=== PATIENT | male | born 1970 | race Caucasian/White ===

== ENCOUNTER → 2020-10-28 03:41 | Outpatient (CLI) | payer BC, SELFPAY ==
[2020-10-28 20:31] LABS: SARS-CoV-2 RNA PCR Negative
== END ==
PROVIDERS: PCP Internal Medicine; Visit Provider Internal Medicine Gastroenterology
DX: Z01.812 Encounter for preprocedural laboratory examination (principal); Z20.822 Contact with and (suspected) exposure to COVID-19
CPT/HCPCS: C9803; U0003; U0005

== ENCOUNTER 2020-10-31 01:59 | Day surgery (SDC) | payer BC, SELFPAY ==
[2020-10-24 13:49] VITALS: BMI 37.0
--- NOTE | 2020-10-24 14:12 | PC.NURSE ---
Pt. was COVID + 04/2020. Symptoms included sinus congestion and loss of taste and smell. Pt. did not require hospitalization. Pavel Lynn RN 10/24/20 [id number].
[2020-10-31 08:03] VITALS: BP 157/98; PULSE 80; RESP 16; TEMP 36.1; O2SAT 100; BMI 35.9
[2020-10-31] MEDS: LACTATED RINGERS 1,000 ML 150 ML IV CONT (08:23)
[2020-10-31] MEDS: GENTAMICIN 80MG/SOD CHL 50 ML 80 MG/50 ML BAG 100 MG IVPB (08:25)
[2020-10-31 08:31] LABS: Glucose Point of Care 259 (65-105)
[2020-10-31] MEDS: AMPICILLIN 2 GM/NS 100 ML 2 GM/100 ML BAG IVPB (08:53)
--- NOTE | 2020-10-31 08:53 | WPDANESEPPF ---
Anes - Initial Pre Proc Eval Procedure: Operation Date: 10/31/20 09:30 Proposed Procedures p screening colonoscopy - Tahir Segal MD Date/Time: 10/31/20 08:53 Surgeon: Tahir Segal MD Pre Op Diagnosis: neoplasm screening Patient Data Age: 49 Gender: M Height: 5 ft 10 in Weight: 113.4 kg Last Vital Signs Temp 97 F L 10/31/20 08:03 Pulse 80 10/31/20 08:03 Resp 16 10/31/20 08:03 BP 157/98 H 10/31/20 08:03 Pulse Ox 100 10/31/20 08:03 Allergies Allergy/AdvReac Type Severity Reaction Status Date / Time No Known Drug Allergies Allergy Verified 10/30/20 13:10 Home Medications Medication Instructions Recorded Confirmed Type aspirin 325 mg tablet 325 mg PO DAILY 08/06/19 10/31/20 History nitroglycerin 0.4 mg sublingual 0.4 mg SUBLINGUAL Q5M PRN 08/06/19 10/31/20 History tablet simvastatin 80 mg tablet 80 mg PO DAILY 08/06/19 10/31/20 History valsartan 320 mg tablet 320 mg PO DAILY #90 tablet 04/23/20 10/31/20 Rx pantoprazole 40 mg tablet,delayed 40 mg PO QAM #90 tablet 05/07/20 10/31/20 Rx release sod picosulf 10 mg-magnes 3.5 160 ml PO BID #160 ml 10/01/20 10/31/20 Rx gram-citric 12 gram/160 mL oral solution fluticasone propionate 50 2 spray INTRANASAL BID #16 ml 10/21/20 10/31/20 Rx mcg/actuation nasal spray,suspension hydrochlorothiazide 25 mg tablet 25 mg PO DAILY #90 tablet 10/29/20 10/31/20 Rx metformin 500 mg tablet 500 mg PO BID #60 tablet 10/29/20 10/31/20 Rx metoprolol succinate 50 mg 100 mg PO DAILY tablet 10/29/20 10/31/20 History tablet,extended release 24 hr Laboratory Tests 10/31/20 08:29 POC Capillary Glucose 259 mg/dl H mg/dl (65-105) Patient hx anesthesia problems: none Family hx anesthesia problems: none PMFSH Past Medical History Medical History (Updated 10/31/20 @ 08:51 by Erick Lugo MD) Atherosclerotic heart disease of [place] coronary artery without angina pectoris Essential (primary) hypertension Hyperlipidemia Obesity (BMI 30-39.9) Pure hypercholesterolemia Family History Family History Sibling Patient's sister is in good health Mother Cerebrovascular accident Skin cancer Father Skin cancer Diabetes mellitus Social History Social History Smoking status: Never smoker Second hand tobacco smoke exposure: No Alcohol intake: current Drinks per week: 2 Alcohol use details: rarely Living arrangements: alone Gender identity (if verbalized by the patient): Male Spiritual care concerns: No Anes - Eval Final PreProcedure Day of Procedure 10/31/20 08:53 Patient weight: obese Heart: regular rate and rhythm Lungs: clear to auscultation Airway: Mallampati scale class III Neurological: alert and oriented Last oral intake: >/= 8 hours ASA classification: III Emergent: no Anesthetic plan: proceed Anesthesia type and monitoring: general GIVS and standard monitoring Informed Consent: The patient's anesthetic plan and its attendant risks and benefits were discussed with the patient/family/POA. Questions were solicited and answers provided to the satisfaction of the patient/family/POA.
--- NOTE | 2020-10-31 09:10 | PM.HPGS ---
History of Present Illness History of Present Illness Consent: Risks, benefits, and alternatives have been discussed and questions answered. Patient agrees to proceed with procedure. Chief complaint: neoplasm screening Narrative: Delvin Leo is a 49 year old male referred for colon cancer screening Review of Systems Review of Systems: All systems reviewed & are unremarkable except as noted in HPI and below PMFSH Past Medical History Medical History Atherosclerotic heart disease of [place] coronary artery without angina pectoris Essential (primary) hypertension Hyperlipidemia Obesity (BMI 30-39.9) Pure hypercholesterolemia Family History Family History Sibling Patient's sister is in good health Mother Cerebrovascular accident Skin cancer Father Skin cancer Diabetes mellitus Social History Social History Smoking status: Never smoker Second hand tobacco smoke exposure: No Alcohol intake: current Drinks per week: 2 Alcohol use details: rarely Living arrangements: alone Gender identity (if verbalized by the patient): Male Spiritual care concerns: No Meds Home Medications and Allergies Home Medications Medication Instructions Recorded Confirmed Type aspirin 325 mg tablet 325 mg PO DAILY 08/06/19 10/31/20 History nitroglycerin 0.4 mg sublingual 0.4 mg SUBLINGUAL Q5M PRN 08/06/19 10/31/20 History tablet simvastatin 80 mg tablet 80 mg PO DAILY 08/06/19 10/31/20 History valsartan 320 mg tablet 320 mg PO DAILY #90 tablet 04/23/20 10/31/20 Rx pantoprazole 40 mg tablet,delayed 40 mg PO QAM #90 tablet 05/07/20 10/31/20 Rx release sod picosulf 10 mg-magnes 3.5 160 ml PO BID #160 ml 10/01/20 10/31/20 Rx gram-citric 12 gram/160 mL oral solution fluticasone propionate 50 2 spray INTRANASAL BID #16 ml 10/21/20 10/31/20 Rx mcg/actuation nasal spray,suspension hydrochlorothiazide 25 mg tablet 25 mg PO DAILY #90 tablet 10/29/20 10/31/20 Rx metformin 500 mg tablet 500 mg PO BID #60 tablet 10/29/20 10/31/20 Rx metoprolol succinate 50 mg 100 mg PO DAILY tablet 10/29/20 10/31/20 History tablet,extended release 24 hr Allergies Allergy/AdvReac Type Severity Reaction Status Date / Time No Known Drug Allergies Allergy Verified 10/30/20 13:10 Vital Signs Vital Signs - 24 hr 10/31/20 08:03 Temperature 36.1 C L Pulse Rate 80 Respiratory Rate 16 Blood Pressure 157/98 H Pulse Oximetry 100 Exam Resp: Auscultation: clear to auscultation bilaterally Cardio: Rate: regular rate Rhythm: regular rhythm GI: GI Palp: Yes Soft to palpation and No Tenderness to palpation present (GI) Assessment and Plan Assessment and plan (1) Colon cancer screening: Code(s): Z12.11 - Encounter for screening for malignant neoplasm of colon Status: Acute Assessment and Plan: Colonoscopy with possible biopsy or polypectomy or cautery or injection of substances.
[2020-10-31] MEDS: SIMETHICONE ORAL SUSPENSION 20 MG/0.3 ML 30 ML BOTTLE 0.6 ML IRRIGATION (09:32)
[2020-10-31 09:39] VITALS: BP 98/62; PULSE 62; RESP 16; O2SAT 98
[2020-10-31 09:49] VITALS: BP 128/73; PULSE 57; RESP 16; O2SAT 97
[2020-10-31 09:59] VITALS: BP 124/75; PULSE 56; RESP 16; O2SAT 96
== END 2020-10-31 10:09 | disposition home or self-care (01) ==
PROVIDERS: PCP Internal Medicine; Visit Provider Internal Medicine Gastroenterology
PROC: 0DJD8ZZ Inspection of Lower Intestinal Tract, Via Natural or Artificial Opening Endoscopic (ICD-10-PCS; CPT 45378; principal; 2020-10-31 09:30)
DX: Z12.11 Encounter for screening for malignant neoplasm of colon (principal); I25.10 Atherosclerotic heart disease of native coronary artery without angina pectoris; I10 Essential (primary) hypertension; E78.5 Hyperlipidemia, unspecified; E78.00 Pure hypercholesterolemia, unspecified; E66.9 Obesity, unspecified
CPT/HCPCS: 45378; 82948; C9803; J0290; J1580; J2704; J7120; U0003; U0005

== ENCOUNTER 2023-11-28 00:21 | Day surgery (SDC) | payer BC, SELFPAY ==
[2023-11-21 14:15] VITALS: BMI 30.9
[2023-11-28 12:43] VITALS: BP 162/92; PULSE 66; RESP 18; TEMP 36.4; O2SAT 100
[2023-11-28 13:08] LABS: Glucose Point of Care 152 mg/dl (65-105)
[2023-11-28] MEDS: LACTATED RINGERS 1,000 ML 150 ML IV CONT (13:08)
[2023-11-28] MEDS: GENTAMICIN 80MG/SOD CHL 50 ML 80 MG/50 ML BAG 100 MG IVPB (13:10)
[2023-11-28] MEDS: AMPICILLIN 2 GM/NS 100 ML 2 GM/100 ML BAG IVPB (13:33)
--- NOTE | 2023-11-28 13:49 | WPDANESEPPF ---
Anes - Initial Pre Proc Eval Procedure: Operation Date: 11/28/23 14:00 Proposed Procedures p Esophagogastroduodenoscopy - Rodney Nguyen MD Date/Time: 11/28/23 13:49 Surgeon: Rodney Nguyen MD Pre Op Diagnosis: Melena, Heartburn Patient Data Age: 53 Gender: M Height: 1.78 m Weight: 97.7 kg Last Vital Signs Temp 97.6 F 11/28/23 12:43 Pulse 66 11/28/23 12:43 Resp 18 11/28/23 12:43 BP 162/92 H 11/28/23 12:43 Pulse Ox 100 11/28/23 12:43 O2 Del Method Room Air 11/28/23 12:43 Allergies Allergy/AdvReac Type Severity Reaction Status Date / Time No Known Drug Allergies Allergy Mild Other Verified 11/28/23 12:42 Home Medications Medication Instructions Recorded Confirmed Type tirzepatide 2.5 mg/0.5 mL 2.5 mg subcut WEEKLY 03/11/23 11/21/23 History subcutaneous pen injector (Rayounlinda) metoprolol succinate 100 mg 100 mg PO DAILY #90 tabs 08/03/23 11/21/23 Rx tablet,extended release 24 hr valsartan 320 mg tablet 320 mg PO DAILY #90 tabs 08/03/23 11/21/23 Rx rosuvastatin 20 mg tablet 20 mg PO DAILY #30 tabs 09/12/23 11/21/23 Rx pantoprazole 40 mg tablet,delayed 40 mg PO QAM #90 tabs 09/30/23 11/21/23 Rx release (Protonix) hydrochlorothiazide 25 mg tablet 25 mg PO DAILY #90 tabs 11/13/23 11/21/23 Rx famotidine 20 mg tablet 20 mg PO DAILY #90 tabs 11/14/23 11/21/23 Rx metformin 1,000 mg tablet,extended 1,000 mg PO BID #180 tabs 11/28/23 Rx release 24hr (osmotic) Laboratory Tests 11/28/23 12:58 POC Capillary Glucose 152 H mg/dl (65-105) Patient hx anesthesia problems: none Family hx anesthesia problems: none Results Review: All pre-operative results and documents have been reviewed as part of the pre-operative evaluation. [facility] Past Medical History Medical History Atherosclerotic heart disease of [place] coronary artery without angina pectoris Essential (primary) hypertension Hyperlipidemia Obesity (BMI 30-39.9) Pure hypercholesterolemia Family History Family History Sibling Patient's sister is in good health Mother Cerebrovascular accident Skin cancer Father Skin cancer Diabetes mellitus Social History Social History Smoking status: Never smoker Second hand tobacco smoke exposure: No Alcohol intake: current Drinks per week: 12 Alcohol use details: rarely Substance use type: does not use Lack of Transportation: No Lack of Food: Never True Current Housing: I Have Housing Concerned About Future Housing: No Difficulty Paying Gas/Electric Bills: No Difficulty Paying for Meds: No Currently Unemployed: No Education: Bachelor's Degree Difficulty w/ Childcare or Family Care: No Living arrangements: alone Gender identity (if verbalized by the patient): Male Spiritual care concerns: No Anes - Eval Final PreProcedure Day of Procedure 11/28/23 13:49 Patient weight: obese Heart: regular rate and rhythm Lungs: clear to auscultation Airway: Mallampati scale class II Neurological: alert and oriented Last oral intake: >/= 8 hours ASA classification: III Emergent: no Anesthetic plan: proceed Anesthesia type and monitoring: general GIVS and standard monitoring Results Review: All pre-operative results and documents have been reviewed as part of the pre-operative evaluation. Informed Consent: The patient's anesthetic plan and its attendant risks and benefits were discussed with the patient/family/POA. Questions were solicited and answers provided to the satisfaction of the patient/family/POA.
--- NOTE | 2023-11-28 14:39 | PM.HPGS ---
History of Present Illness History of Present Illness Consent: Risks, benefits, and alternatives have been discussed and questions answered. Patient agrees to proceed with procedure. Chief complaint: Melena, Heartburn Narrative: Delvin Leo is a 53 year old male with chest discomfort followed by melena 2 weeks ago, no more episodes since. He has been taking pantoprazole for quite sometime, started using famotidine since that episode. EGD but years ago Review of Systems Review of Systems: All systems reviewed & are unremarkable except as noted in HPI and below PMFSH Past Medical History Medical History (Updated 11/28/23 @ 14:40 by Rodney Nguyen MD) Atherosclerotic heart disease of [place] coronary artery without angina pectoris Essential (primary) hypertension Hyperlipidemia Melena Obesity (BMI 30-39.9) Pure hypercholesterolemia Family History Family History Sibling Patient's sister is in good health Mother Cerebrovascular accident Skin cancer Father Skin cancer Diabetes mellitus Social History Social History Smoking status: Never smoker Second hand tobacco smoke exposure: No Alcohol intake: current Drinks per week: 12 Alcohol use details: rarely Substance use type: does not use Lack of Transportation: No Lack of Food: Never True Current Housing: I Have Housing Concerned About Future Housing: No Difficulty Paying Gas/Electric Bills: No Difficulty Paying for Meds: No Currently Unemployed: No Education: Bachelor's Degree Difficulty w/ Childcare or Family Care: No Living arrangements: alone Gender identity (if verbalized by the patient): Male Spiritual care concerns: No Meds Home Medications and Allergies Home Medications Medication Instructions Recorded Confirmed Type tirzepatide 2.5 mg/0.5 mL 2.5 mg subcut WEEKLY 03/11/23 11/21/23 History subcutaneous pen injector (Tony) metoprolol succinate 100 mg 100 mg PO DAILY #90 tabs 08/03/23 11/21/23 Rx tablet,extended release 24 hr valsartan 320 mg tablet 320 mg PO DAILY #90 tabs 08/03/23 11/21/23 Rx rosuvastatin 20 mg tablet 20 mg PO DAILY #30 tabs 09/12/23 11/21/23 Rx pantoprazole 40 mg tablet,delayed 40 mg PO QAM #90 tabs 09/30/23 11/21/23 Rx release (Protonix) hydrochlorothiazide 25 mg tablet 25 mg PO DAILY #90 tabs 11/13/23 11/21/23 Rx famotidine 20 mg tablet 20 mg PO DAILY #90 tabs 11/14/23 11/21/23 Rx metformin 1,000 mg tablet,extended 1,000 mg PO BID #180 tabs 11/28/23 Rx release 24hr (osmotic) Allergies Allergy/AdvReac Type Severity Reaction Status Date / Time No Known Drug Allergies Allergy Mild Other Verified 11/28/23 12:42 Vital Signs Vital Signs - 24 hr 11/28/23 12:43 Temperature 97.6 F Pulse Rate 66 Respiratory Rate 18 Blood Pressure 162/92 H Pulse Oximetry 100 Oxygen Delivery Room Air Exam Const: General: comfortable and no acute distress HENMT: Face/Nose/Sinus: Normal nares present Eyes: General: appearance normal, both eyes and all related structures Neck: Neck: no JVD Resp: Auscultation: clear to auscultation bilaterally Cardio: Rate: regular rate Rhythm: regular rhythm GI: Inspection: non-distended GI Palp: Yes Soft to palpation Skin: General skin exam: normal color Neuro: General: gait normal Speech: normal speech Extrem: General: normal to inspection Psych: Mental Status: mental status grossly normal Assessment and Plan Assessment and plan (1) Melena: Code(s): K92.1 - Melena Status: Acute Assessment and Plan: egd to assess if any source of bleeding
[2023-11-28 14:51] VITALS: BP 110/57; PULSE 56; RESP 17; O2SAT 100
[2023-11-28 15:01] VITALS: BP 122/70; PULSE 57; RESP 23; O2SAT 98
[2023-11-28 15:11] VITALS: BP 123/76; PULSE 58; RESP 20; O2SAT 99
== END 2023-11-28 15:20 | disposition home or self-care (01) ==
PROVIDERS: PCP Internal Medicine; Referring Provider Internal Medicine; Visit Provider Internal Medicine Gastroenterology
PROC: 0DJ08ZZ Inspection of Upper Intestinal Tract, Via Natural or Artificial Opening Endoscopic (ICD-10-PCS; CPT 43235; principal; 2023-11-28 14:00)
DX: K31.89 Other diseases of stomach and duodenum (principal); I10 Essential (primary) hypertension; I25.10 Atherosclerotic heart disease of native coronary artery without angina pectoris; E78.00 Pure hypercholesterolemia, unspecified; E66.9 Obesity, unspecified; Z68.30 Body mass index [BMI] 30.0-30.9, adult; Z79.85 Long-term (current) use of injectable non-insulin antidiabetic drugs; Z79.84 Long term (current) use of oral hypoglycemic drugs; Z84.0 Family history of diseases of the skin and subcutaneous tissue; Z82.49 Family history of ischemic heart disease and other diseases of the circulatory system
CPT/HCPCS: 43239; 82948; 88305; J0290; J1580; J2704; J7120

== ENCOUNTER 2024-08-08 03:20 | Day surgery (SDC) | payer BC, SELFPAY ==
[2024-07-31 09:23] VITALS: BMI 32.8
--- NOTE | 2024-08-03 11:12 | PC.NURSE ---
Message left for _PATIENT_ regarding medication _ELIQUIS_. _PATIENT_called back and verbalizes understanding that the last dose is to be taken on _08/04/2024_ and the Endoscopist will instruct them when to restart after the procedure.
--- OUTSIDE RECORDS SUMMARY | 2024-08-08 03:23 | XMS_ITS | Referral Summary ---
Author Organization [facility] [address] Address [address] [place] [address] Care Team Providers Care Palletizer Name Role Phone Tate Flores Primary Care Provider Allergies No known active allergies Medications metoprolol XL (TOPROL-XL) 50 mg 24 hr tablet Take 1 tablet (50 mg total) by mouth daily Active pantoprazole DR (PROTONIX) 40 mg EC tablet Take 1 tablet (40 mg total) by mouth daily Active valsartan (DIOVAN) 80 mg tablet Take 4 tablets (320 mg total) by mouth daily Active rosuvastatin (CRESTOR) 20 mg tablet Take 1 tablet (20 mg total) by mouth daily 01/08/2023 Active aspirin 81 mg enteric coated tablet Take 1 tablet (81 mg total) by mouth daily Active empagliflozin (Jardiance) 25 mg tablet Take 1 tablet (25 mg total) by mouth daily 11/30/2023 Active famotidine (PEPCID) 20 mg tablet Take 1 tablet (20 mg total) by mouth daily 11/14/2023 Active apixaban (ELIQUIS) 5 mg tablet Take 1 tablet (5 mg total) by mouth 2 (two) times a day 12/15/2023 Active Active Problems Problem Noted Date Diagnosed Date Coronary artery disease invo lving [place] coronary artery of [place] heart without angina pectoris 07/12/2017 Hx of CABG 07/12/2017 S/P AVR (aortic valve replacement) 07/12/2017 Surgical follow-up care 04/01/2014 Aortic valve stenosis 01/30/2014 Chronic coronary artery disease 01/30/2014 Social History Tobacco Use Types Packs/Day Years Used Date Smoking Tobacco: Never Smokeless Tobacco: Never Alcohol Use Standard Drinks/Week Comments Yes 0 (1 standard drink = 0.6 oz pur e alcohol) Sex and Gender Information Value Date Recorded Sex Assigned at Not on file 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 Gender Identity Not on file Sexual Orientation Not on file Last Filed Vital Signs Vital Sign Reading Time Taken Comments Blood Pressure 112/80 04/05/2024 2:25 PM CDT Pulse 58 04/05/2024 2:25 PM CDT Temperature - - Respiratory Rate - - Oxygen Saturation 96% 04/05/2024 2:25 PM CDT Inhaled Oxygen Concentration - - Weight 103.2 kg (227 lb 9.6 oz) 04/05/2024 2:25 PM CDT Height 177.8 cm (5' 10 ) 04/05/2024 2:25 PM CDT Body Mass Index 32.66 04/05/2024 2:25 PM CDT Plan of Treatment Not on file Insurance [employer] O[employer] Care Teams Palletizer Relationship Specialty Start Date End Date Tate Flores DO [address] [facility] [address] [place] [address] PCP - General Internal Medicine 04/05/24
--- OUTSIDE RECORDS SUMMARY | 2024-08-08 03:23 | XMS_ITS | Patient Health Summary ---
Author Organization [facility] Address [address] [place] [address] Care Team Providers Care Tire Man Name Role Phone Erlin Armenta DO Primary Care Provider Note from [facility],non-owned Affiliates and Associated Physician Practices is amultiple site organization consisting of ambulatory clinics and hospital sitesin [place], [place] and [place]. This disclosure is being madepursuant to the Care Everywhere program and may not contain all information available regarding this patient. Last updated 18.[facility] Allergies No known active allergies Medications * Be aware that medications may not be up to date on this document. Alwaysverify current medications with the patient. * metFORMIN (Glucophage) 500 MG tablet(Started 03/25/2021) Take 1 (one) tablet by mouth 2 times daily with morning and evening meal * hydroCHLOROthiazide (Hydrodiuril) 25 MG tablet(Started 04/21/2021) * pantoprazole EC (Protonix) 40 MG tablet Take 1 (one) tablet by mouth once daily * valsartan (Diovan) 320 MG tablet(Started 04/21/2022) Take 1 (one) tablet by mouth once daily * Jardiance 25 MG tablet(Started 11/30/2023) Take 1 (one) tablet by mouth once daily * famotidine (Pepcid) 20 MG tablet(Started 11/14/2023) Take 1 (one) tablet by mouth once daily * apixaban (Eliquis) 5 MG tablet(Started 12/15/2023) Take 1 (one) tablet by mouth 2 times daily * metoprolol succinate XL 24hr (Toprol XL) 50 MG tablet(Started 12/15/2023) Take 1 (one) tablet by mouth once daily * Mounjaro 5 MG/0.5ML injection(Started 06/01/2024) * rosuvastatin (Crestor) 40 MG tablet(Started 05/25/2024) Take 1 (one) tablet by mouth once daily Active Problems Problem Noted Date Diagnosed Date NSTEMI (non-ST elevated myocardial infarction) 0 12/14/2023 Chest pain, unspecified type 12/14/2023 Pre-op testing 06/28/2022 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 (FLUCELVAX QUADRIVALENT; 6MO+) (CCIIV4)(Given 07/15/2023) Social History Tobacco Use Types Packs/Day Years Used Date Smoking Tobacco: Never Smokeless Tobacco: Never Tobacco Cessation:Counseling Given: Not Answered Alcohol Use Standard Drinks/Week Comments Yes 0 (1 standard drink = 0.6 oz pur e alcohol) social AUDIT-C Answer Date Recorded Q1: How often do you have a drink containing alc ohol? 2-4 times a month 12/14/2023 Q2: How many drinks containi ng alcohol do you have on a typical day when you are drinking? 3 or 4 12/14/2023 Q3: How often do you have si x or more drinks on one occasion? Never 12/14/2023 Overall Financial Resource Strain (CARDIA) Answe r Date Recorded How hard is it for you to pa y for the very basics like food, housing, medical care, and heating? Not very hard 12/14/2023 [facility] - Occupational Stress Questionnaire Answer Date Recorded Do you feel stress - tense, restless, nervous, or anxious, or unable to sleep at night because your mind is troubled all the time - these days? Only a little 12/14/2023 Hunger Vital Sign Answer Date Recorded Within the past 12 months, y ou worried that your food would run out before you got the money to buy more. Never true 12/14/19 24 Within the past 12 months, t he food you bought just didn't last and you didn't have money to get more. Never true 12/14/2023 PRAPARE - Transportation Answer Date Re corded In the past 12 months, has l ack of transportation kept you from medical appointments or from getting medications? No 11/2023 In the past 12 months, has l ack of transportation kept you from meetings, work, or from getting things needed for daily living? No 12/14/2023 Housing Stability Vital Sign Answer Miguel e Recorded In the last 12 months, was t here a time when you were not able to pay the mortgage or rent on time? No 12/14/2023 In the last 12 months, how many places have you lived? 1 12/14/2023 In the last 12 months, was t here a time when you did not have a steady place to sleep or slept in a senior care (including now)? No 12/14/2023 Sex and Gender Information Value Date Recorded Sex Assigned at Not on file Gender Identity Not on file Sexual Orientation Not on file Last Filed Vital Signs Vital Sign Reading Time Taken Comments Blood Pressure 181/94 07/02/2024 1:05 PM FRAME STRAIGHTENER Pulse 67 07/02/2024 1:05 PM FRAME STRAIGHTENER Temperature 36.1 ??C (97 ??F) 07/02/2024 1:05 PM FRAME STRAIGHTENER Respiratory Rate 20 12/15/2023 1:18 PM CDT Oxygen Saturation 98% 07/02/2024 1:05 PM FRAME STRAIGHTENER Inhaled Oxygen Concentration - - Weight 103.9 kg (229 lb) 07/02/2024 1:05 PM FRAME STRAIGHTENER Height 177.8 cm (5' 10 ) 07/02/2024 1:05 PM FRAME STRAIGHTENER Body Mass Index 32.86 07/02/2024 1:05 PM FRAME STRAIGHTENER Procedures * CARDIAC RHYTHM STRIP ORDER(Performed 12/19/2023) * ECHO ABIDA COMPLETE(Performed 12/15/2023) Performed for Chest pain, unspecified type * CCL CARDIOVERSION(Performed 12/15/2023) * CCL VEGETABLE VENDOR DIAGNOSTIC ABIDA(Performed 12/15/2023) * B-TYPE NATRIURETIC PEPTIDE(Performed 12/15/2023) * MAGNESIUM BLOOD(Performed 12/15/2023) * BASIC METABOLIC PANEL (CALCIUM TOTAL)(Performed 12/15/2023) * LIPID PROFILE(Performed 12/15/2023) * PTT(Performed 12/15/2023) * PT-INR(Performed 12/15/2023) * CBC W AUTO DIFFERENTIAL(Performed 12/15/2023) * URINALYSIS REFLEX TO MICROSCOPIC NO CULTURE(Performed 12/14/2023) * CCL ULTRASOUND FOR ACCESS(Performed 12/14/2023) * CCL LEFT HEART CATH(Performed 12/14/2023) * PTT(Performed 12/14/2023) * ED CRITICAL CARE(Performed 12/14/2023) * TROPONIN-I HIGH SENSITIVE REFLEX 1HOUR(Performed 12/14/2023) * HEMOGLOBIN A1C(Performed 12/14/2023) * PTT(Performed 12/14/2023) * PT-INR(Performed 12/14/2023) * CBC W AUTO DIFFERENTIAL(Performed 12/14/2023) * XR CHEST 1VW PORTABLE(Performed 12/14/2023) Performed for Chest pain, unspecified type * TROPONIN-I HIGH SENSITIVE BASELINE + 1HR(Performed 12/14/2023) * COMPREHENSIVE METABOLIC PANEL(Performed 12/14/2023) * CBC W AUTO DIFFERENTIAL(Performed 12/14/2023) * EKG 12-LEAD(Performed 12/14/2023) Performed for Chest pain, unspecified type * CARDIAC EKG ORDER(Performed 07/09/2022) * GLUCOSE - POINT OF CARE(Performed 07/08/2022) * BRAF V600 MUTATION ANALYSIS(Performed 07/08/2022) Performed for Melanoma of suprapubic region (HCC) * PATHOLOGY TISSUE(Performed 07/08/2022) Performed for Melanoma of suprapubic region (HCC) * [place] SENTINEL LYMPH NODE BX PROC PERFORM(Performed 07/08/2022) Performed for Melanoma of suprapubic region (HCC) * BIOPSY/EXCISION LESION(Performed 07/08/2022) Performed for Melanoma of suprapubic region (HCC) * LARYNGEAL MASK AIRWAY(Performed 07/08/2022) * NM LYMPHOSCINTIGRAPHY(Performed 07/08/2022) Performed for Melanoma of suprapubic region (HCC) * POTASSIUM BLOOD(Performed 07/08/2022) Performed for Pre-op testing * GLUCOSE - POINT OF CARE(Performed 07/08/2022) * COMPREHENSIVE METABOLIC PANEL(Performed 06/28/2022) Performed for Melanoma of suprapubic region (HCC) * CBC W AUTO DIFFERENTIAL(Performed 06/28/2022) Performed for Melanoma of suprapubic region (HCC) * XR CHEST 2VW(Performed 06/28/2022) Performed for Melanoma of suprapubic region (HCC) * EKG 12-LEAD(Performed 06/28/2022) Performed for Melanoma of suprapubic region (HCC) * DERMATOPATHOLOGY(Performed 06/18/2022) Results * CARDIAC RHYTHM STRIP ORDER (12/19/2023 9:51 PM CDT) Narrative 12/19/2023 9:51 PM CDT Ordered by an unspecified provider. Scanned Document CARDIAC SERVICES ORD ERABLES * ECHO ABIDA COMPLETE (12/15/2023 1:09 PM CDT) BSA 2.2393000 m2 [facility] CV FUJ I PACS LV est EF 55 % [facility] CV FUJ I PACS Anatomical Region Laterality Modality Ultrasound Narrative 12/16/2023 1:26 PM CDT ?Left??Ventricle: Left ventricle size is normal. Normal systolic function with a visually estimated EF of 55%. ?Mitral??Valve: Mild regurgitation. ?No PASTORA or LA thrombus. Left Ventricle Left ventricle size is normal. Normal systolic function with a visually estimated EF of 55%. Right Ventricle Right ventricle size is normal. Normal systolic function. Left Atrium Left atrium size is normal. The interatrial septum appears normal with no evidence of a shunt by color flow Doppler. No right to left intracardiac or extracardiac shunt present viewable with agitated saline. Normal appendage flow velocity. No thrombus present in the left atrial appendage (PASTORA). Normal flow patterns in the pulmonary veins. Right Atrium Right atrium size is normal. Mitral Valve Valve structure is normal. Mild regurgitation. No stenosis. Tricuspid Valve Valve structure is normal. Trace regurgitation. No stenosis. Aortic Valve Bioprosthetic valve. No regurgitation. No stenosis. Pulmonic Valve Not well visualized, but appears grossly normal. Trace regurgitation. No stenosis. Ascending Aorta Normal sized sinus of Valsalva (aortic root), ascending aorta and descending aorta. Pericardium No pericardial effusion. Study Details A complete echo was performed using complete 2D, color flow Doppler and spectral Doppler. During the study the esophageal view was captured. Saline (bubble) contrast was used during the study. The probe was inserted by the floor installer. There was no probe insertion difficulty. Sedation was managed by the anesthesiologist. Lidocaine was not administered during the study. There were no complications during the procedure. Prior Study Prior TTE study available for comparison. Prior study date: 09/13/2023. Ene Vasquez MD ECHO CUP ID * CCL VEGETABLE VENDOR DIAGNOSTIC ABIDA, CCL CARDIOVERSION (12/15/2023 12:48 PM CDT) Only the most recent of2 resultswithin the time period is included. Anatomical Region Laterality Modality X-Ray Angiograph y Narrative 12/15/2023 12:52 PM CDT ?Successful DCCV from AFL to NSR using 200J. Reason for Procedure 53 yo male admitted with new onset AFL. Procedure Details Estimated Blood Loss: 0 mL Pre-Procedure Cardioversion basis: elective. Pre-procedure rhythm: atrial flutter. Electrodes: pads. Electrodes placed anterior-posterior. Shock Mode: synchronous. Waveform: biphasic. Shock: 200 Joules. Outcome: conversion to normal sinus rhythm. Post-Procedure Post-procedure rhythm: normal sinus rhythm. Complications: no complications. Patient tolerance: patient tolerated the procedure well with no immediate complications. Recommendations - Continue metoprolol and Eliquis. Ene Vasquez MD CV CARDI AC CATH CUPID PROCS * PTT (12/15/2023 4:15 AM CDT) Only the most recent of3 resultswithin the time period is included. PTT 36.8 23.0 - 38.4 sec 12/15/2023 5:04 AM CDT [facility] Blood BLOOD SPECIMEN / Unknown Lab Venipuncture / Unknown 12/15/2023 4:15 AM CDT 12/15/2023 4:30 AM CDT Narrative [facility] - 12/15/2023 5:04 AM CDT Heparin Therapeutic Range for PTT: ??69.0 - 110.0 seconds. Ene Vasquez MD LAB - CO AGULATION ORDERABLES Performing Organization Address [facility] de Phone Number [facility] [address] [place] [phone] * PT-INR (12/15/2023 4:15 AM CDT) Only the most recent of2 resultswithin the time period is included. PT 14.4 12.1 - 14.8 sec 12/15/2023 5:04 AM CDT [facility] INR 1.1 0.9 - 1.1 12/15/2023 5:04 AM CDT [facility] Blood BLOOD SPECIMEN / Unknown Lab Venipuncture / Unknown 12/15/2023 4:15 AM CDT 12/15/2023 4:30 AM CDT Narrative [facility] - 12/15/2023 5:04 AM CDT Conventional Warfarin Anticoagulant Therapy: INR Reference Range: ??2.0-3.0 Intensive Warfarin Anticoagulant Therapy: INR Reference Range: ? 2.5-3.5 Ene Vasquez MD LAB - CO AGULATION ORDERABLES Performing Organization Address [facility] de Phone Number [facility] [address] [place] [phone] * CBC W AUTO DIFFERENTIAL (12/15/2023 4:15 AM CDT) Only the most recent of4 resultswithin the time period is included. WBC 8.2 4.0 - 10.7 x10E9/L 12/15/2023 4:49 AM CDT [facility] RBC Count 5.24 4.30 - 5.80 x10E12/L 12/15/2023 4:49 AM CDT [facility] Hemoglobin 14.0 13.3 - 17.5 g/dL 12/15/2023 4:49 AM CDT [facility] Hematocrit 43.3 38.7 - 51.1 % 12/15/2023 4:49 AM CDT [facility] MCV 82.6 80.0 - 98.0 fL 12/15/2023 4:49 AM CDT [facility] MCH 26.7 26.7 - 33.6 pg 12/15/2023 4:49 AM CDT [facility] MCHC 32.3 31.7 - 36.3 g/dL 12/15/2023 4:49 AM CDT [facility] RDW-CV 14.7 11.3 - 14.8 % 12/15/2023 4:49 AM CDT [facility] Platelet Count 295 150 - 420 x10E9/L 12/15/2023 4:49 AM CDT [facility] MPV 9.6 7.8 - 11.4 fL 12/15/2023 4:49 AM CDT [facility] Neutrophil % 60.1 41.0 - 74.0 % 12/15/2023 4:49 AM CDT [facility] Lymphocyte % 28.9 17.0 - 47.0 % 12/15/2023 4:49 AM CDT [facility] Monocyte % 8.3 3.0 - 11.0 % 12/15/2023 4:49 AM CDT [facility] Eosinophil % 1.5 0.0 - 7.0 % 12/15/2023 4:49 AM CDT [facility] Basophil % 0.7 0.0 - 1.6 % 12/15/2023 4:49 AM CDT [facility] Immature Granulocytes % 0.5 0.0 - 1.0 % 12/15/2023 4:49 AM CDT [facility] Neutrophil Absolute 4.94 1.60 - 7.50 x10E9/L 12/15/2023 4:49 AM CDT [facility] Lymphocyte Absolute 2.37 1.00 - 4.40 x10E9/L 12/15/2023 4:49 AM CDT [facility] Monocyte Absolute 0.68 0.15 - 1.00 x10E9/L 12/15/2023 4:49 AM CDT [facility] Eosinophil Absolute 0.12 0.00 - 0.60 x10E9/L 12/15/2023 4:49 AM T [facility] Basophil Absolute 0.06 0.00 - 0.13 x10E9/L 12/15/2023 4:49 AM T [facility] Blood BLOOD SPECIMEN / Unknown Lab Venipuncture / Unknown 12/15/2023 4:15 AM CDT 12/15/2023 4:30 AM CDT Ene Vasquez MD LAB - HE MATOLOGY ORDERABLES [facility] [address] [place] [address] * (ABNORMAL) BASIC METABOLIC PANEL (CALCIUM TOTAL) (12/15/2023 4:15 AM CDT) Glucose 158(H) 70 - 105 mg/dL 12/15/2023 5:05 AM [facility] Sodium 140 136 - 145 mmol/L 12/15/2023 5:05 AM [facility] Potassium 3.1(L) 3.5 - 5.1 mmol/L 12/15/2023 5:05 AM [facility] Chloride 105 98 - 107 mmol/L 12/15/2023 5:05 AM [facility] CO2 25 22 - 29 mmol/L 12/15/2023 5:05 AM [facility] Calcium 9.2 8.4 - 10.4 mg/dL 12/15/2023 5:05 AM [facility] Anion Gap 10 6 - 16 mmol/L 12/15/2023 5:05 AM [facility] BUN 18 7 - 26 mg/dL 12/15/2023 5:05 AM [facility] Creatinine 1.17 0.72 - 1.25 mg/dL 12/15/2023 5:05 AM [facility] eGFR by CKD-EPI 74(L) >=90 mL/min/1.7 3 m2 12/15/2023 5:05 AM [facility] Blood BLOOD SPECIMEN / Unknown Lab Venipuncture / Unknown 12/15/2023 4:15 AM CDT 12/15/2023 4:30 AM CDT Tessie Rodriges CEMENTER MACHINE-COMMUNICATIONS INSTRUCTOR LAB - CHEMIS TRY ORDERABLES Performing Organization Address [facility] Co de Phone Number [facility] [address] [place] [phone] * (ABNORMAL) B-TYPE NATRIURETIC PEPTIDE (12/15/2023 4:15 AM CDT) BNP 211(H) <=100 pg/mL 12/15/2023 5:02 AM CDT [facility] Blood BLOOD SPECIMEN / Unknown Lab Venipuncture / Unknown 12/15/2023 4:15 AM CDT 12/15/2023 4:30 AM CDT Narrative [facility] - 12/15/2023 5:02 AM CDT A cutoff of 100 pg/mL has been demonstrated to provide the maximal combination of sensitivity, specificity, and negative predictive value for contributing to the diagnosis of congestive heart failure (CHF) only. ??A B-Type Natriuretic Peptide (BNP) value greater than or equal to 100 pg/mL is consistent with a diagnosis of CHF in the appropriate clinical setting. ??False positive results are more common in females greater than 75 years of age. ??Blood concentrations of natriuretic peptides may also be elevated in patients with myocardial infarction and in patients who are candidates for or are undergoing renal dialysis. Marlene Magaña MD LAB - CHEMISTRY JASE ROJAS Performing Organization Address [facility] de Phone Number [facility] [address] [place] [phone] * MAGNESIUM BLOOD (12/15/2023 4:15 AM CDT) Magnesium 2.3 1.6 - 2.6 mg/dL 12/15/2023 5:05 AM CDT [facility] Blood BLOOD SPECIMEN / Unknown Lab Venipuncture / Unknown 12/15/2023 4:15 AM CDT 12/15/2023 4:30 AM CDT Tessie Rodriges CEMENTER MACHINE-COMMUNICATIONS INSTRUCTOR LAB - CHEMIS TRY ORDERABLES Performing Organization Address [facility] Co de Phone Number [facility] [address] [place], [place] [phone] * (ABNORMAL) LIPID PROFILE (12/15/2023 4:15 AM CDT) Cholesterol 172 <200 mg/dL 12/15/2023 5:05 AM CDT [facility] Triglycerides 188(H) <150 mg/dL 12/15/2023 5:05 AM CDT [facility] HDL Cholesterol 36(L) >40 mg/dL 4 5:05 AM CDT [facility] LDL Calculated 98 <130 mg/dL 12/15/2023 5:05 AM CDT [facility] VLDL Calculated 38(H) <=30 mg/dL 5:05 AM CDT [facility] Chol HDL Ratio 4.8(H) <4.5 12/15/2023 5:05 AM CDT [facility] LDL/HDL Ratio 2.7 <5.0 12/15/2023 5:05 AM CDT [facility] Blood BLOOD SPECIMEN / Unknown Lab Venipuncture / Unknown 12/15/2023 4:15 AM CDT 12/15/2023 4:30 AM CDT Ene Vasquez MD LAB - CH EMISTRY ORDERABLES Performing Organization Address [facility] Co de Phone Number [facility] [address] [place] [address] * (ABNORMAL) URINALYSIS REFLEX TO MICROSCOPIC NO CULTURE (12/14/2023 11:24 PM CDT) Color UA Yellow Straw, Yellow 12/14/2023 11:50 PM CDT [facility] Clarity UA Clear Clear 12/14/2023 11:50 PM CDT [facility] Glucose UA 3+(A) Negative 12/14/2023 11:50 PM CDT [facility] Bilirubin UA Negative Negative 12/14/2023 11:50 PM CDT [facility] Ketone UA Negative Negative 12/14/2023 11:50 PM CDT [facility] Specific [place] UA 1.039(H) 1.005 - 1.030 12/14/2023 11:50 PM CDT [facility] Blood UA Negative Negative 12/14/2023 11:50 PM CDT [facility] pH UA 5.0 5.0 - 8.0 pH 12/14/2023 11:50 PM CDT [facility] Protein UA Negative Negative 12/14/2023 11:50 PM CDT [facility] Urobilinogen UA Negative Negative mg/dL 12/14/2023 11:50 PM CDT [facility] Nitrite UA Negative Negative 12/14/2023 11:50 PM CDT [facility] Leukocyte UA Negative Negative 12/14/2023 11:50 PM CDT [facility] Urine Microscopy Urine microscopy not indicated 12/14/2023 11:50 PM CDT [facility] Urine URINE SPECIMEN OBTAINED BY CLEAN CATCH PROCEDURE / Unknown Collection / Unknown 12/14/2023 11:24 PM CDT 12/14/2023 11:43 PM CDT Narrative [facility] - 12/14/2023 11:50 PM CDT Felisha Villanueva DO LAB - URINALYSIS ORD ERABLES Performing Organization Address City/State/[facility] Co de Phone Number [facility] [address] [place] [address] * Critical Care (12/14/2023 9:40 AM CDT) Narrative Felisha Villanueva DO - 12/14/2023 9:40 AM CDT Felisha Villanueva DO ? 12/14/2023 ??9:45 AM Critical Care Performed by: Felisha Villanueva DO Authorized by: Felisha Villanueva DO ?? Critical care provider statement: ??Critical care time (minutes): ??35 ??Critical care start time: ??12/14/2023 9:00 AM ??Critical care end time: ??12/14/2023 9:45 AM ??Critical care was necessary to treat or prevent imminent or life-threatening deterioration of the following conditions: ntemi, chest pain. ??Critical care was time spent personally by me on the following activities: ??Discussions with consultants, evaluation of patient's response to treatment, re-evaluation of patient's condition, pulse oximetry, ordering and review of radiographic studies, ordering and review of laboratory studies and review of old charts ??Care discussed with: admitting provider ?? Felisha Villanueva DO PROCEDURE/MINOR SURG ICAL ORDERABLES * (ABNORMAL) TROPONIN-I HIGH SENSITIVE REFLEX 1HOUR (12/14/2023 9:24 AM CDT) Troponin I High Sensitive 358(HH) <=35 ng/L 12/14/2023 9:50 AM CDT [facility] Delta Troponin I HS 114(H) <6 ng/L 12/14/2023 9:50 AM CDT [facility] Comment:For acute chest pain (<3 hours), a delta of > or = 6 ng/L from baseline to 1 hour may indicate myocardial injury. Blood BLOOD SPECIMEN / Unknown Venipuncture / Unknown 12/14/2023 9:24 AM CDT 12/14/2023 9:24 AM CDT Felisha Villanueva DO LAB - CHEMISTRY JASE ROJAS Performing Organization Address City/State/[facility] Co de Phone Number [facility] [address] [place] [phone] * (ABNORMAL) HEMOGLOBIN A1C (12/14/2023 8:46 AM CDT) Hemoglobin A1c 6.5(H) <5.7 % 12/14/2023 12:53 PM CDT [facility] Estimated Average Glucose 140 mg/dL 12/14/2023 12:53 PM CDT [facility] Blood BLOOD SPECIMEN / Unknown Venipuncture / Unknown 12/14/2023 8:46 AM CDT 12/14/2023 9:00 AM CDT Narrative [facility] - 12/14/2023 12:53 PM CDT HbA1c Interpretation: Normal: < 5.7% Pre-diabetes: 5.7-6.4% Diabetes: Equal to or greater than 6.5% Test results diagnostic of diabetes should be repeated for confirmation. Treatment target values recommended by ADA and other clinical organizations should be used to evaluate metabolic control in patients. This test should not replace glucose testing for patients with Type 1 diabetes, pediatric patients, or women. ??Falsely low HbA1c results may be observed in patients with clinical conditions that shorten erythrocyte life span or decrease mean erythrocyte age such as the presence of unstable hemoglobin variants, elevated hemoglobin F level or other causes of hemolytic anemia. ??HbA1c may not accurately reflect glycemic control when clinical conditions that affect erythrocyte survival are present. ??Severe Iron deficiency anemia may yield falsely high results. ??Hemoglobin A1c assay should not be used to diagnose or monitor diabetes in patients with malignancy, recent blood transfusion, chronic kidney or liver disease. ?? This method may yield falsely low results when hemoglobin (HbF) exceeds 5% in the specimen. The [employer] assay for the measurement of HbA1c is a National Glycohemoglobin Standardization Program (NGSP) certified method. Marlene Magaña MD LAB - CHEMISTRY JASE ROJAS [facility] Organization Address City/State/[facility] Co de Phone Number [facility] [address] [phone] * XR CHEST 1VW PORTABLE (12/14/2023 8:35 AM CDT) Anatomical Region Laterality Modality Chest Radiographic Ronel ging 12/14/2023 8:36 AM CDT Impressions 12/14/2023 8:37 AM CDT IMPRESSION: 1. ??No acute findings 2. ??Prosthetic cardiac valve > Interpreting Provider: Juany Quan MD on 12/14/2023 8:37 AM Narrative 12/14/2023 8:37 AM CDT PROCEDURE: ??XR CHEST 1VW PORTABLE DATE/TIME OF EXAM: ??12/14/2023 8:36 AM CLINICAL INFORMATION: None relevant/not provided if blank. Indication: R07.9: Chest pain, unspecified Additional History: COMPARISON: None. FINDINGS: The lungs are clear and free of effusion. ??The heart size is normal. ??A prosthetic cardiac valve is noted along with mediastinal postop changes. No significant bony findings. Procedure Note Juany Quan MD - 12/14/2023 PROCEDURE: XR CHEST 1VW PORTABLE DATE/TIME OF EXAM: 12/14/2023 8:36 AM CLINICAL INFORMATION: None relevant/not provided if blank. Indication: R07.9: Chest pain, unspecified Additional History: COMPARISON: None. FINDINGS: The lungs are clear and free of effusion. The heart size is normal. A prosthetic cardiac valve is noted along with mediastinal postop changes. No significant bony findings. IMPRESSION: 1. No acute findings 2. Prosthetic cardiac valve > Interpreting Provider: Juany Quan MD on 12/14/2023 8:37 AM Felisha Villanueva DO DIAGNOSTIC IMAGING O RDERABLES * (ABNORMAL) TROPONIN-I HIGH SENSITIVE BASELINE + 1HR (12/14/2023 8:08 AM CDT) Pathologist [facility] Troponin I High Sensitive 244(H) <=35 ng/L 12/14/2023 8:35 AM CDT [facility] Blood BLOOD SPECIMEN / Unknown Venipuncture / Unknown 12/14/2023 8:08 AM CDT 12/14/2023 8:12 AM CDT Felisha Villanueva DO LAB - CHEMISTRY JASE ROJAS [facility] [address] [place] [address] * (ABNORMAL) COMPREHENSIVE METABOLIC PANEL (12/14/2023 8:08 AM CDT) Only the most recent of2 resultswithin the time period is included. Glucose 352(H) 70 - 105 mg/dL 12/14/2023 8:29 AM CDT [facility] Sodium 139 136 - 145 mmol/L 12/14/2023 8:29 AM CDT [facility] Potassium 4.2 3.5 - 5.1 mmol/L 12/14/2023 8:29 AM CDT [facility] Chloride 105 98 - 107 mmol/L 12/14/2023 8:29 AM CDT [facility] CO2 22 22 - 29 mmol/L 12/14/2023 8:29 AM CDT [facility] Calcium 10.2 8.4 - 10.4 mg/dL 12/14/2023 8:29 AM CDT [facility] Anion Gap 12 6 - 16 mmol/L 12/14/2023 8:29 AM CDT [facility] BUN 27(H) 7 - 26 mg/dL 12/14/2023 8:29 AM CDT [facility] Creatinine 1.33(H) 0.72 - 1.25 mg/dL 12/14/2023 8:29 AM CDT [facility] Alkaline Phosphatase 113 40 - 150 U/L 12/14/2023 8:29 AM CDT [facility] ALT 26 0 - 55 U/L 12/14/2023 8:29 AM CDT [facility] AST 20 5 - 34 U/L 12/14/2023 8:29 AM CDT [facility] Protein Total 7.9 6.4 - 8.3 gm/dL 12/14/2023 8:29 AM CDT [facility] Albumin 4.1 3.4 - 5.0 gm/dL 12/14/2023 8:29 AM CDT [facility] Bilirubin Total 0.4 0.2 - 1.2 mg/dL 12/14/2023 8:29 AM T [facility] eGFR by CKD-EPI 64(L) >=90 mL/min/1.7 3 m2 12/14/2023 8:29 AM CDT [facility] Blood BLOOD SPECIMEN / Unknown Venipuncture / Unknown 12/14/2023 8:08 AM CDT 12/14/2023 8:12 AM CDT Felisha Villanueva DO LAB - CHEMISTRY JASE ROJAS [facility] Organization Address City/State/ZIP Co de Phone Number [facility] [address] [place] [address] * EKG 12-LEAD (12/14/2023 8:05 AM CDT) Only the most recent of2 resultswithin the time period is included. Ventricular Rate 116 BPM [facility] Atrial Rate 271 BPM [facility] QRS Duration ms 110 ms [facility] Q-T Interval ms 348 ms [facility] QTC Calculation (Bezet) 483 ms [facility] Calculated R [place] -55 degrees [facility] Calculated T [place] 112 degrees [facility] Interpretation EKG ATRIAL FLUTTER WITH VARIABLE A-V BLOCK LEFT AXIS DEVIATION MINIMAL VOLTAGE CRITERIA FOR LVH, MAY BE NORMAL VARIANT ( [place] product ) ST & T WAVE ABNORMALITY, CONSIDER LATERAL ISCHEMIA ABNORMAL ECG Confirmed by ENE CARROLL MD ([id number]) on 12/14/2023 4:22:03 PM [facility] 12/14/2023 8:05 AM CDT 12/14/2023 4:22 PM CDT Felisha Villanueva DO ECG ORDERABLES Performing Organization Address City/[facility]/ZIP Co de Phone Number [facility] * CARDIAC EKG ORDER (07/09/2022 1:27 PM FRAME STRAIGHTENER) Narrative 07/09/2022 1:27 PM FRAME STRAIGHTENER Ordered by an unspecified provider. Scanned Document CARDIAC SERVICES ORD ERABLES * GLUCOSE - POINT OF CARE (07/08/2022 6:09 PM FRAME STRAIGHTENER) Only the most recent of2 resultswithin the time period is included. [facility] Glucose WB/POC 94 70 - 115 mg/dL 07/09/2022 12:10 AM FRAME STRAIGHTENER [facility] Specimen Type Cap Fingerstick 2021 12:10 AM FRAME STRAIGHTENER [facility] Blood BLOOD SPECIMEN / Unknown 07/08/2022 6:09 PM FRAME STRAIGHTENER 07/09/2022 12:10 AM FRAME STRAIGHTENER Otilio Ndiaye MD LAB - POINT OF CARE ORDERABLES Performing Organization Address City/[facility] Co de Phone Number [facility] [address] [address], [facility] [phone] * (ABNORMAL) BRAF V600 MUTATION ANALYSIS (07/08/2022 5:15 PM FRAME STRAIGHTENER) [facility] BRAF Codon 600 Mutation Detection Positive( A) 07/27/2022 3:40 PM FRAME STRAIGHTENER [facility] ([facility]) Comment: A mutation in BRAF codon 600 was detected: c.1799T>A, p.V600E This result has been reviewed and approved by Richie Savage M.D. INTERPRETIVE INFORMATION: BRAF Codon 600 Mutation Detection by Pyrosequencing Interpretation of BRAF test results depends on the tissue tested (colorectal carcinoma, papillary thyroid carcinoma, melanoma, or other tumors). ?? COLORECTAL CARCINOMA In a microsatellite unstable colorectal carcinoma a BRAF c.1799T>A, p.Cql572Hsf (V600E) mutation indicates that the tumor is probably sporadic and not associated with Darling syndrome (HNPCC). ??However, if a BRAF mutation is not detected, the tumor may either be sporadic or Darling syndrome associated. ?? Detection of BRAF mutations may also be useful in determining patient eligibility for anti-EGFR treatment. THYROID TUMORS In papillary thyroid carcinoma a BRAF c.1799T>A, p.Rjl451Zvk (V600E) mutation is highly specific and is only rarely associated with other well-differentiated thyroid neoplasms or nodular goiters. MELANOMAS AND OTHER TUMORS Mutations in BRAF codon 600 may indicate whether a tumor is likely to respond to therapy that targets the BRAF pathway. Methodology: DNA is isolated from microdissected tumor tissue and amplified for exon 15 of the BRAF gene. ??Mutation status is determined by pyrosequencing. Limitations: ??Mutations in other locations within the BRAF gene or in other genes will not be detected. ?? Limit of detection: 10 percent mutant alleles. Clinical Disclaimer: ??Results of this test must always be interpreted within the clinical context and other relevant data, and should not be used alone for a diagnosis of malignancy. ??This test is not intended to detect minimal residual disease. This test was developed and its performance characteristics determined by [employer] It has not been cleared or approved by the US Food and Drug Administration. This test was performed in a CLIA certified laboratory and is intended for clinical purposes. Block ID [id number] [facility] 07/27/2022 3:40 PM FRAME STRAIGHTENER [employer] ([facility]) Comment: Performed By: [employer] [address] [place] [address] Solar Installation Crew Supervisor: Nav Dee MD, PhD Lymph Node Dissection TISSUE SPECIMEN / Unknown 07/08/2022 5:15 PM FRAME STRAIGHTENER 07/20/2022 11:35 AM FRAME STRAIGHTENER Otilio Ndiaye MD LAB - PATHOLOGY/CYTO LOGY ORDERABLES [employer] [facility]) [address] [place] [address], [facility] * PATHOLOGY TISSUE (07/08/2022 5:01 PM FRAME STRAIGHTENER) Case Report Surgical Pathology Report ? Case: [id number] ? Authorizing Provider: ??Otilio Ndiaye MD ?Collected: ? 07/08/2022 05:01 PM ? Ordering Location: ? [facility] ?Received: ?07/09/2022 05:08 AM ? Pathologist: ? Irene Shoemaker MD ? Specimens: ?? A) - [place] Lymph Node, Left sentinal node biopsy, stitch hot spot ? B) - Skin, left suprapubic melanoma 12 oclock suture ? C) - Margin, inferior suprapubic melanoma ? D) - Margin, superior suprapubic melanoma ? 3 6:12 PM [facility] Final Diagnosis Skin, left suprapubi c melanoma, wide resection (B): - Malignant melanoma, superficial spreading type, Breslow thickness 2.5 mm, pT3a - Surgical margins are negative for melanoma: invasive melanoma is 10 mm to the closest peripheral (9 o'clock) and 20 mm to the deep margins; melanoma in situ is 9 mm to the closest peripheral (9 o'clock) margin Skin, inferior margin, excision (C): - Benign skin Skin, superior margin, excision (D): - Benign skin Lymph node, left, sentinel, excision (A): - One lymph node involved by metastatic melanoma (07/11), see comment 3 6:12 PM [facility] Microscopic Description and Comment Sections of the specimen (C) shows nests of atypical melanocytic cells, invading the reticular dermis to a maximum depth of 2.5 mm. Melanoma in situ is 9 mm to the closest specimen margin (9:00). Additional superior and inferior margins are negative for melanoma. SOX10 and HMB-45 highlight microscopic nests of metastatic melanoma discontinuously spanning 2 mm, without extranodal extension. An associated intradermal nevus is noted (B13) 3 6:12 PM [facility] Clinical History The patient is a 51-year-old man with left suprapubic melanoma, who underwent excision and sentinel node dissection. 3 6:12 PM [facility] Intraoperative Consultation 3 6:12 PM [facility] Gross Description The requisition and specimen label(s) are identified with the patient's name, Delvin Leo. Received in formalin, specimen A , is an oriented 3.0 x 2.5 x 0.9 cm fragment of adipose tissue with embedded lymph node, with a stitch marking the hotspot. Blunt dissection reveals a 1.9 x 1.4 x 0.9 cm lymph node. Sectioning shows a smooth unremarkable cut surface with blue dye. The lymph node is entirely submitted in A1-A2. Received in formalin, specimen B is a 4.6 x 4.6 cm oriented skin ellipse excised to a depth of 3.1 cm, with a stitch marking 12:00. There is a 2.6 x 2.1 cm ill-defined, vanegas-brown, variegated raised central lesion, 1.1 cm from 12:00 margin, 1.0 cm from 3:00 margin, 1.2 cm from 6:00 margin, and 1.5 cm from 9:00 margin. The remaining skin surface is white-vanegas and hair-bearing. Specimen is inked as follows: Blue-3:00 margin, green-9:00 margin, black-deep.Sectioning shows a 0.1 cm thick brown pigmented tissue underlying the superficial lesion. The remaining tissue is unremarkable. The specimen is entirely submitted as follows: B1-12:00 tip, sectioned, B2-B20- mass entirely submitted (B2-B3- one slide bisected between 12:00 tip and lesion, B4-B5- one slice bisected, B6-B8- one slice trisected, B9-B11- one slice, trisected, B12-B14- one slice trisected, B15-B17- one slice, trisected, B18-B20- one slice, trisected), B21-B23- one slice between lesion and 6:00 tip, trisected, B24-B25- 6:00 tip, sectioned. CD Received in formalin, specimen C is a 2.6 x 1.5 cm triangular skin excision excised to a depth of 1.9 cm. The skin surface is white-vanegas and without lesion. Sectioning shows an unremarkable white-vanegas, smooth cut surface overlying yellow-gold lobular adipose tissue. Wholesale Agronomist section is submitted in C1. Received in formalin, specimen D is a 3.5 x 2.5 cm triangular skin excision excised to a depth of 2 cm. The skin surface is white-vanegas and hair-bearing. There is a 0.3 x 0.3 x 0.3 cm area of discoloration. A inventory representative section to include the area of discoloration submitted in D1. CD 3 6:12 PM [facility] Addendum 1 A request for BRAF mutational analysis was received 07/19/22 for patient Delvin Leo from Dr. Otilio Garcia. The test is to be performed on tissue from case [id number]. The case report, slides, and blocks for the cited accession were retrieved from the archives. The pathologist whose signature appears below reviewed the original pathology report, examined candidate H&E slides, and selected the block (B12) appropriate to the specifications of the ordered molecular analysis. The tissue was forwarded to [facility] where the subject molecular tests will be performed. 3 6:12 PM [facility] Addendum electronically signed by Irene Shoemaker MD on 07/19/2022 at 2:42 PM Addendum 2 A mutation in BRAF codon 600 was was detected. See scanned [facility] report for additional details. Technical performance and interpretation was referred to [facility], [address] [place] [id number]. 3 6:12 PM [facility] Addendum electronically signed by Irene Shoemaker MD on 07/27/2022 at 6:12 PM Disclaimer The performance characteristics of all immunohistochemical and indirect immunofluorescence stains (if any) cited in this report were determined by the Histopathology Laboratory of [facility]. Some of these tests were developed by our own laboratory and have not been cleared or approved by the US Food and Drug Administration. The FDA does not require this test to go through premarket FDA review. These tests are used for clinical purposes. They should not be regarded as investigational or for research. This laboratory is certified under the Clinical Laboratory Improvement Amendments (CLIA) as qualified to perform high complexity clinical laboratory testing. This case has been personally reviewed and interpreted by the attending (teaching) pathologist. 3 6:12 PM [facility] Synoptic Report MELANOMA OF THE SKIN : Excision, Re-Excision MELANOMA OF THE SKIN: EXCISION, RE-EXCISION ??- All Specimens 8th Edition - Protocol posted: 05/20/2021 SPECIMEN ?? Procedure: ?Excision ?? Procedure: ?[place] node(s) biopsy ?? Specimen Laterality: ?Left TUMOR ?? Tumor Site: ?Skin of trunk: suprapubic ?? Histologic Type: ?Superficial spreading melanoma (low-cumulative sun damage (CSD) melanoma) ?? Maximum Tumor (Breslow) Thickness (Millimeters): ?2.5 mm ?? Macroscopic Satellite Nodule(s): ?Not identified ?? Ulceration: ?Not identified ?? Anatomic (James) Level: ?IV (Melanoma invades reticular dermis) ?? Mitotic Rate: ?8 mitoses per mm2 ?? Microsatellite(s): ?Not identified ?? Lymphovascular Invasion: ?Not identified ?? Neurotropism: ?Not identified ?? Tumor-Infiltrating Lymphocytes: ?Present, brisk ?? MARGINS: ? Margin Status for Invasive Melanoma: ?All margins negative for invasive melanoma ? Closest Margin Location(s) to Invasive Melanoma: ?9:00 ? Distance from Invasive Melanoma to Peripheral Margin: ?At least: 10 mm ? Distance from Invasive Melanoma to Deep Margin: ?20 mm ? Margin Status for Melanoma in situ: ?All margins negative for melanoma in situ ? Distance from Melanoma in Situ to Peripheral Margin: ?At least: 9 mm ?? REGIONAL LYMPH NODES: ? Regional Lymph Node Status: ? : ?Tumor present in regional lymph node(s) ? Total Number of Lymph Nodes with Tumor: ?1 ? Number of [place] Lymph Nodes with Tumor: ?1 ? Size of Largest [place] Node Metastatic Deposit: ?2 mm ? Size of Largest [place] Metastatic Deposit: ?2 mm ? Extranodal Extension: ?Not identified ? Matted Nodes: ?Not identified ? Total Number of Lymph Nodes Examined: ?1 ? Number of [place] Nodes Examined: ?1 ?? PATHOLOGIC STAGE CLASSIFICATION (pTNM, AJCC 8th Edition): ? : ?Classification assigned in this report includes information from a prior procedure: [id number] ? pT Category: ?pT3a ? pN Category: ?pN1a ADDITIONAL FINDINGS Additional Findings: ?Associated nevus: intradermal ?? 3 6:12 PM FRAME STRAIGHTENER [facility] Embedded Images 3 6:12 PM FRAME STRAIGHTENER [facility] Lymph Node Dissection SPECIMEN FROM SENTINEL LYMPH NODE / Unknown 07/08/2022 5:01 PM FRAME STRAIGHTENER 07/09/2022 5:08 AM FRAME STRAIGHTENER Comment:Pre-op diagnosis: MELANOMA OF LEFT SUPRAPUBIC REGION Lymph Node Dissection TISSUE SPECIMEN FROM SKIN / Unknown 07/08/2022 5:15 PM FRAME STRAIGHTENER 07/09/2022 5:08 AM FRAME STRAIGHTENER Comment:Pre-op diagnosis: MELANOMA OF LEFT SUPRAPUBIC REGION Lymph Node Dissection (Margin) 07/08/2022 5:16 PM FRAME STRAIGHTENER 07/09/2022 5:08 AM FRAME STRAIGHTENER Comment:Pre-op diagnosis: MELANOMA OF LEFT SUPRAPUBIC REGION Lymph Node Dissection (Margin) 07/08/2022 5:17 PM FRAME STRAIGHTENER 07/09/2022 5:08 AM FRAME STRAIGHTENER Comment:Pre-op diagnosis: MELANOMA OF LEFT SUPRAPUBIC REGION Otilio Ndiaye MD LAB - PATHOLOGY/CYTO LOGY ORDERABLES Performing Organization Address City/State/[facility] Co de Phone Number [facility] [address] [phone] * LARYNGEAL MASK AIRWAY (07/08/2022 4:45 PM FRAME STRAIGHTENER) Narrative Lilian Martinez APRN-CRNA - 07/08/2022 4:45 PM FRAME STRAIGHTENER Lilian Martinez APRN-CRNA ? 07/08/2022 ??4:46 PM LMA Placement Procedure/LDA Note: LMA Insertion Date/Time: ??07/08/2022 4:39 PM Procedure: LMA. Pretreatment: 100% O2 Induction: standard IV Patient position: sniffing. Mask Ventilation: easy Type: ??LMA Size: ??4 Number of Attempts: 1. Placement verified by: direct visualization, bilateral breath sounds, chest auscultation and CO2 monitor Procedure Start Time: 07/08/2022 4:39 PM. Staff Section ? Anesthesia Provider: Lilian Martinez, CEMENTER MACHINE-BUS OPERATOR, Performed the procedure ? Provider #1: Keya Luther MD. Keya Luther MD GENERAL ANESTHESIA O RDERABLES * NM LYMPHOSCINTIGRAPHY (07/08/2022 1:36 PM FRAME STRAIGHTENER) Anatomical Region Laterality Modality Nuclear Medicine 07/08/2022 1:28 PM FRAME STRAIGHTENER Impressions 07/08/2022 3:59 PM FRAME STRAIGHTENER Impression: [place] lymph node identification and marking in the area superior to left inguinal ligament and superolateral to the lesion. > Dictated by Ana Estrada MD (Train Engineer) 07/08/2022 2:55 PM Roddy Rossi DO have personally reviewed and interpreted this examination/study. > Interpreting Provider: Roddy Lucero DO on 07/08/2022 3:59 PM Narrative 07/08/2022 3:59 PM FRAME STRAIGHTENER PROCEDURE: ??NM LYMPHOSCINTIGRAPHY, DATE/TIME OF EXAM: ??07/08/2022 12:29 PM, LOCATION ??[facility] INDICATION: C43.59: Melanoma of suprapubic region (CMS/HCC) History:51 year old male patient with biopsy proven left suprapubic skin melanoma, referred for sentinel lymph node identification and marking prior to surgery. Technique: mCi of Tc-99m tilmanocept (Lymphoseek) injected intradermally around the lesion. Patient's BMI 32.3 ?? kg/m2 Findings: A total dose of mCi Tc 99-m tilmanocept (Lymphoseek) was given by 4 separate intradermal injections around the original lesion by . Planar dynamic images of initially shows a faint trail of activity leading towards . Subsequently, a sentinel node is localized in the region of the area superior to inguinal ligament and superolateral to the lesion . The sentinel lymph node was marked on the skin based on anterior projection. Dr. Roddy Lucero was present for the lopez time of the study. Procedure Note Roddy Lucero DO - 07/08/2022 PROCEDURE: NM LYMPHOSCINTIGRAPHY, DATE/TIME OF EXAM: 07/08/2022 12:29PM, LOCATION [facility] INDICATION: C43.59: Melanoma of suprapubic region (CMS/HCC) History:51 year old male patient with biopsy proven left suprapubic skin melanoma, referred for sentinel lymph node identification and markingprior to surgery. Technique: mCi of Tc-99m tilmanocept (Lymphoseek) injected intradermally around the lesion. Patient's BMI 32.3 kg/m2 Findings: A total dose of mCi Tc 99-m tilmanocept (Lymphoseek) was given by 4 separate intradermal injections around the original lesion by . Planar dynamic images of initially shows a faint trail of activityleading towards . Subsequently, a sentinel node is localized in the region ofthe area superior to inguinal ligament and superolateral to the lesion . The sentinel lymph node was marked on the skin based on anterior projection. Dr. Roddy Lucero was present for the lopez time of the study. Impression: [place] lymph node identification and marking in the area superior toleft inguinal ligament and superolateral to the lesion. > Dictated by Ana Estrada MD (Train Engineer) 07/08/2022 2:55PM IRoddy DO have personally reviewed and interpreted this examination/study. > Interpreting Provider: Roddy Lucero DO on 07/08/2022 3:59 PM Otilio Ndiaye MD NM ORDERABLES * (ABNORMAL) POTASSIUM BLOOD (07/08/2022 12:08 PM FRAME STRAIGHTENER) Potassium 3.0(L) 3.5 - 4.5 mmol/L 07/08/2022 12:49 PM FRAME STRAIGHTENER [facility] Blood BLOOD SPECIMEN / Unknown Venipuncture / Unknown 07/08/2022 12:08 PM FRAME STRAIGHTENER 07/08/2022 12:29 PM FRAME STRAIGHTENER Otilio Ndiaye MD LAB - CHEMISTRY JASE ROJAS [facility] [address] [place] [id number], [facility] [phone] * XR CHEST 2VW (06/28/2022 3:17 PM FRAME STRAIGHTENER) Anatomical Region Laterality Modality Chest Radiographic Ronel ging 06/28/2022 3:27 PM FRAME STRAIGHTENER Narrative 06/28/2022 4:07 PM FRAME STRAIGHTENER PROCEDURE: ??XR CHEST 2VW, DATE/TIME OF EXAM: ??06/28/2022 3:17 PM, LOCATION [facility] INDICATION: C43.59: Melanoma of suprapubic region (CMS/HCC) COMPARISON: None. FINDINGS/IMPRESSION: Median sternotomy wires and aortic valve prosthesis appear intact and are in expected positioning. A coronary artery stent is partially visualized. There is no focal consolidation, pleural effusion, or pneumothorax. The cardiac silhouette is enlarged. The visible bony thorax is intact. Report dictated by Pj Rajput MD (commercial lending vice president). Stuart Rossi MD have personally reviewed and interpreted this examination/study. > Interpreting Provider: Stuart Cobos MD on 06/28/2022 4:07 PM Procedure Note Stuart Cobos MD - 06/28/2022 PROCEDURE: XR CHEST 2VW, DATE/TIME OF EXAM: 06/28/2022 3:17 PM, LOCATION [facility] INDICATION: C43.59: Melanoma of suprapubic region (CMS/HCC) COMPARISON: None. FINDINGS/IMPRESSION: Median sternotomy wires and aortic valve prosthesis appear intact andare in expected positioning. A coronary artery stent is partiallyvisualized. There is no focal consolidation, pleural effusion, or pneumothorax. The cardiac silhouette is enlarged. The visible bony thorax is intact. Report dictated by Pj Rajput MD (commercial lending vice president). Stuart Rossi MD have personally reviewed and interpreted this examination/study. > Interpreting Provider: Stuart Cobos MD on 06/28/2022 4:07 PM Otilio Ndiaye MD DIAGNOSTIC IMAGING O RDERABLES * DERMATOPATHOLOGY (06/18/2022 12:00 AM FRAME STRAIGHTENER) Case Report Dermatopathology Report ? Case: [id number] ? Authorizing Provider: ??Alina Norwood APRN-CNP ?Collected: ? 06/18/2022 12:00 AM ? Ordering Location: ? [facility] ?Received: ?06/21/2022 11:42 AM ? Pathologist: ? Hannah Lock MD ? Specimen: ?Skin, left suprapubic ? 2 4:15 PM [facility] Final Diagnosis Specimen A. SKIN, left suprapubic: MALIGNANT MELANOMA,SUPERFICIA L SPREADING TYPE (C43.4) BRESLOW THICKNESS 1.5 MM, JAMES LEVEL IV PRESENT AT MARGIN (see microscopic description and synoptic report) 2 4:15 PM [facility] Clinical History R/O MM 2 4:15 PM [facility] Gross Description Specimen A: Received is one formalin filled container labeled with the patient's name and designated left suprapubic. The specimen consists of a punch biopsy measuring 4x4x6 mm. Jar 0. 2 4:15 PM [facility] Microscopic Description Specimen A. SKIN, left suprapubic: There is a proliferation melanocytes distributed in an irregular pattern singly and in nests at all levels of an acanthotic epidermis. In the dermis there are irregular nests and single scattered melanocytes. There is a lymphohistiocytic infiltrate within the dermis. This lesion is present at the margin of the specimen. See synoptic report. 2 4:15 PM [facility]ER[facility] Disclaimer An external and internal positive and negative controls are appropriate for the histochemical, immunohistochemical and immunofluorescence stain(s) in this case (if any), except where stated explicitly. The performance characteristics of the stain(s) cited in this report were developed and its performance characteristic determined by the Dermatopathology Laboratory at [facility], directed by Dr. Olesya Lock. These tests need not be, and therefore are not, approved by the [place] Food and Drug Administration. The tests are used for clinical purposes. Billing Codes Specimen Charges Stain Charges 45953 1 2 4:15 PM [facility] Embedded Images 2 4:15 PM [facility] Synoptic Report MELANOMA OF THE SKIN: Biopsy MELANOMA OF THE SKIN: BIOPSY - All Specimens 8th Edition - Protocol posted: 09/30/2021 SPECIMEN ?? Procedure: ?Biopsy, punch ?? Specimen Laterality: ?Left TUMOR ?? Tumor Site: ?Skin of trunk: left supra pubic ?? Histologic Type: ?Superficial spreading melanoma (low-cumulative sun damage (CSD) melanoma) ?? Maximum Tumor (Breslow) Thickness (Millimeters): ?At least: 1.6 mm ? : ?the tumor is present at the surgical margin, therefore, the final depth may exceed the current one. ?? Ulceration: ?Not identified ?? Anatomic (James) Level: ?At least level: IV ? : ?the tumor is present at the surgical margin, therefore, the final depth may exceed the current one. ?? Mitotic Rate: ?2 mitoses per mm2 ?? Microsatellite(s): ?Cannot be determined ?? Lymphovascular Invasion: ?Not identified ?? Neurotropism: ?Not identified ?? Tumor-Infiltrating Lymphocytes: ?Present, brisk ?? Tumor Regression: ?Present ?? MARGINS: ? Margin Status for Invasive Melanoma: ?Invasive melanoma present at margin ? Margin(s) Involved by Invasive Melanoma: ?Peripheral ? Margin Status for Melanoma in situ: ?All margins negative for melanoma in situ ?? PATHOLOGIC STAGE CLASSIFICATION (pTNM, AJCC 8th Edition): ? pT Category: ?pT2a 4:15 PM [facility] Pathology/Cytolog y TISSUE SPECIMEN FROM SKIN / Unknown 06/18/2022 06/21/2022 11:42 AM [facility] Alina Norwood APRN-COMMUNICATIONS INSTRUCTOR LAB - PATHOLOGY/CY TOLOGY ORDERABLES DERMATOPATHOLOGY LABORATORY [facility] - Department of Dermatology [facility] Medicine [address] [place] [address], [address] [phone] Care Teams Tire Man Relationship Specialty Start Date End Date Erlin Armenta DO [address] [facility] [address] [facility] [address] [place] [address] PCP - General 06/25/22
--- OUTSIDE RECORDS SUMMARY | 2024-08-08 03:23 | XMS_ITS | Clinical Summary ---
Author Organization [employer] [address] Address [address] [place] [id number] Care Team Providers Care Awning Installer Name Role Phone Unavailable Primary Care Provider Unavailabl e Immunizations Immunization Administration Dates Next Due (PFIZER)(12 YR UP) COVID-19 VACCINE - EMERGENCY USE AUTHORIZATION, MRNA, [id number](PF) 30 MCG/0.3 ML IM SUSP 2020,10/22/2020 Social History Tobacco Use Types Packs/Day Years Used Date Smoking Tobacco: Never Assessed Sex and Gender Information Value Date Recorded Sex Assigned at Not on file Legal Sex Male 11:06 AM CDT Gender Identity Not on file Sexual Orientation Not on file Plan of Treatment Health Maintenance Due Date Last Done Comments DTAP/TDAP/TD VACCINES (1 - Tdap) 1988 HEPATITIS B VACCINES (1 of 3 - 19+ 3-dose series) 1988 COLORECTAL SCREENING 2014 Colorectal Cancer Screening 2014 FIT-DNA Q 3 years 2014 FIT/FOBT Q 1 year 2014 Flex Sig/CT Colonography Q 5 years 2014 ZOSTER VACCINE (1 of 2) 11/13/2019 INFLUENZA VACCINE (#1) 2024 COVID-19 Vaccine (3 - 2023-2 5 season) 2024 2020, 10/22/2020 PNEUMOCOCCAL VACCINE 0-64 YEARS Aged Out No longer eligible b ased on patient's age to complete this topic Insurance BCBS BLUE ACCESS/TRUE BLUE PPO
--- OUTSIDE RECORDS SUMMARY | 2024-08-08 03:23 | XMS_ITS | Clinical Summary ---
Author Organization [facility] [address] Address [address] [place] [address] Care Team Providers Care Sandblast Carver Name Role Phone Tate Flores DO Primary Care Provider [phone] Allergies No known active allergies Medications metoprolol [...] Diagnosed Date Coronary artery disease invo lving kashia coronary artery of kashia heart without angina pectoris 07/12/2017 Hx of CABG 07/12/2017 S/P AVR (aortic valve replacement) 07/12/2017 Surgical follow-up care 04/01/2014 Aortic valve stenosis 01/30/2014 Chronic coronary artery disease 01/30/2014 Surgical History Surgery Date Site/Laterality Comments CARDIAC STENT PLACEMENT CORONARY ARTERY BYPASS GRAFT ANGIOPLASTY Medical History Medical History Date Comments Hypertension Hypertension Hyperlipidemia Heart murmur Heart valve problem Heart attack (HCC) Overweight Acid indigestion Pneumonia GERD (gastroesophageal reflux disease) Cancer (CMS/HCC) (HCC) Jun 2022 Diabetes mellitus (HCC) January 2022 Heart disease Family History Medical History Relation Name Comments Diabetes Father Stephanie Leo Hearing loss Father Stephanie Leo COPD Mother Eufemia Leo Hypertension Mother Eufemia Leo Stroke Mother Eufemia Leo Relation Name Status Comments Father Stephanie Leo Alive Mother Eufemia Leo Alive Sister Alive Social History Tobacco Use Types Packs/Day Years Used Date Smoking Tobacco: Never Smokeless Tobacco: Never Alcohol Use Standard Drinks/Week Comments Yes 0 (1 standard drink = 0.6 oz pur e alcohol) Sex and Gender Information Value Date Recorded Sex Assigned at Not on file 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 Gender Identity Not on file Sexual Orientation Not on file Obstetrics History Last Filed Vital Signs Vital Sign Reading [...] 04/05/2024 2:25 PM CDT Plan of Treatment Health Maintenance Due Date Last Done Comments Colon Cancer Screening-Colonoscopy 1969 Depression Screening 1969 Hepatitis C Screening 1969 Prostate Cancer Screening-PSA 1969 Pneumococcal vaccine <65 (1 of 2 - PCV) 11/13/1975 DTaP/Tdap/Td Vaccine (1 - Tdap) 1980 Hepatitis B Screening 11/13/1987 Regular Well Visit/Exam 18-64 11/13/1987 Zoster Vaccine (1 of 2) 1988 Covid-19 Vaccine (5 - 2023-2 5 season) 2024 07/15/2023, 07/01/2021, 2020, Additional history exists Influenza Vaccine (#1) 2024 , 07/01/2021, 05/21/2015 Insurance [employer] OOS Care Teams Sandblast Carver Relationship Specialty Start Date End Date Tate Flores DO [address] [place], [place] [phone] PCP - General Internal Medicine 04/05/24
--- OUTSIDE RECORDS SUMMARY | 2024-08-08 03:23 | XMS_ITS | Encounter Summary ---
Author Organization [facility] Address [address] [place] [address] Phone Care Team Providers Care Berry Picker Machine Operator Name Role Phone Erlin Armenta DO Primary Care Provider [phone] Jovani Cordova MD Unavailable [phone] Reason for Visit * Reason Onset Date Comments Prior Authorization 11/30/2023 Ct a/p román l info Encounter Details Date Type Department Care Team (Late st Contact Info) Description 11/30/2023 Telephone [facility] [address] [phone] Jovani Cordova MD [address] [place] [phone] Prior Authorization (Ct a/p denial info) Social History Tobacco Use Types Packs/Day Years Used Date Smoking Tobacco: Never Smokeless Tobacco: Never Alcohol Use Standard Drinks/Week Comments Yes 12 (1 standard drink = 0.6 oz pu re alcohol) only during summer months Sex and Gender Information Value Date Recorded Sex Assigned at Not on file 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 Gender Identity Not on file Sexual Orientation Not on file documented as of this encounter Plan of Treatment Upcoming Encounters Date Type Department Care Team (Late st Contact Info) Description 09/28/2024 9:15 AM CDT Lab [facility] [address] [phone] Lab, [facility] 09/28/2024 9:30 AM CDT Office Visit [facility] [address] [place] [address] Jovani Cordova MD [address] [place] [address] documented as of this encounter Visit Diagnoses Not on filedocumented in this encounter Care Teams Berry Picker Machine Operator Relationship Specialty Start Date End Date Erlin Armenta DO [address] [place], [place] [phone] PCP - General Internal Medicine 07/16/22 Jovani Cordova MD [address] [place] [phone] Consulting Physician Oncology 08/06/22 documented as of this encounter
--- OUTSIDE RECORDS SUMMARY | 2024-08-08 03:23 | XMS_ITS ---
Author Organization [facility] Address [address] [facility] [place] [address] Care Team Providers Care Care Management Specialist Name Role Phone Geovany Erlin Silverio DO Primary Care Provider Active Problems Problem Noted Date Diagnosed Date NSTEMI (non-ST elevated myocardial infarction) 0 12/14/2023 Chest pain, unspecified type 12/14/2023 Pre-op testing 06/28/2022 Melanoma of suprapubic region 06/28/2022 Cancer Staging:Clinical:Stage IB(cT2a, cN0, cM0) - Unsigned Pathologic stage from 08/06/2022:Stage IIIB(pT3a, pN1a, cM0) - Signed by Otilio Ndiaye MD on 08/06/2022 Current Oncology Plans No current plan information found. Past Plans No past plan information found. Radiation Treatments * No radiation treatments are documented for this patient in [facility]. Treatments may have been administered in another system. Lifetime Dose Tracking * Chemical Lifetime Dose Automatic Entry Manual Entr y Air Kerma 249 mGy 0 mGy 249 mGy
--- OUTSIDE RECORDS SUMMARY | 2024-08-08 03:23 | XMS_ITS | Clinical Summary ---
Author Organization [facility] Address [address], [facility] [place] [address] Phone Care Team Providers Care Battery Vent Plug Inserter Name Role Phone Erlin Armenta DO Primary Care Provider [phone] Jovani Cordova MD Unavailable [phone] Allergies No known active allergies Medications pantoprazole (PROTONIX) 40 MG Tablet Delayed Response Take 40 mg by mouth. Active Valsartan 320 MG Tablet Take 320 mg by mouth. 04/21/2022 Active apixaban (ELIQUIS) 5 MG Tablet Take 1 Tablet by mouth 2 times daily. 12/15/2023 Active Jardiance 25 MG Tablet Take 1 Tablet by mouth daily. 11/30/2023 Active famotidine (PEPCID) 20 MG Tablet Take 1 Tablet by mouth daily. 11/14/2023 Active hydroCHLOROthia zide 25 MG Tablet Take 25 mg by mouth daily. 11/14/2023 Active metoprolol Succinate (TOPROL-XL) 50 MG TABLET SR 24 HR Take 50 mg by mouth. 12/15/2023 Active aspirin EC (Aspir-Low) 81 MG Tablet Delayed Response 02/09/2024 Active Mounjaro 5 MG/0.5ML Solution Auto-injector 06/01/2024 Activ e diazePAM (VALIUM) 5 MG Tablet 06/26/2024 Active imiquimod (ALDARA) 5 % Cream APPLY 1 PACKET ONTO THE LEFT SIDE OF THE BACK ONCE DAILY AT BEDTIME 04/03/2024 Active rosuvastatin (CRESTOR) 40 MG Tablet Take 40 mg by mouth daily. 05/26/2024 Active Active Problems Problem Noted Date Diagnosed Date Elevated blood pressure reading 06/29/2024 Melanoma 07/28/2022 S/P AVR (aortic valve replacement) 07/12/2017 Hx of CABG 07/12/2017 Atherosclerosis of coronary artery 01/30/2014 Aortic valve stenosis 01/30/2014 Encounters Date Type Department Care Team Description 06/29/2024 9:30 AM TRAINING INTERN Office Visit [facility] [address] [address] Eron Ramsey MD Malignant melanoma, unspecified site (HCC) (Primary Dx) 06/29/2024 9:00 AM TRAINING INTERN Ancillary Procedure [facility] [address] [address] Malignant melanoma, unspecified site (HCC) 06/29/2024 8:45 AM TRAINING INTERN Lab [facility] [address] [address] [facility] Malignant melanoma, unspecified site (HCC) 06/29/2024 Travel from Last 3 Months Immunizations Immunization Administration Dates Next Due Covid-19, Mrna, Lnp-s, Pf, 30 Mcg/0.3 Ml Dose (P caleb) 07/01/2021 Influenza Vaccine 05/21/2015 Influenza Vaccine, MDCK,quadrivalent, pres free 07/15/2023 Influenza Vaccine, Quadrivalent, PF 07/01/2021 Family History Medical History Relation Name Comments Cancer Father Diabetes Father Chronic Obstructive Pulmonary Disease Mother Hypertension Mother Stroke Mother Relation Name Status Comments Father Alive Mother Alive Sister Alive Social History Tobacco Use Types Packs/Day Years Used Date Smoking Tobacco: Never Smokeless Tobacco: Never Tobacco Cessation:Counseling Given: Not Answered Alcohol Use Standard Drinks/Week Comments Yes 12 (1 standard drink = 0.6 oz pu re alcohol) only during summer months Sex and Gender Information Value Date Recorded Sex Assigned at Not on file Legal Sex Male 12:32 PM TRAINING INTERN Gender Identity Not on file Sexual Orientation Not on file Last Filed Vital Signs Vital Sign Reading Time Taken Comments Blood Pressure 130/74 06/29/2024 8:53 AM TRAINING INTERN Pulse 68 06/29/2024 8:53 AM TRAINING INTERN Temperature 36.6 ??C (97.8 ??F) 06/29/2024 8:53 AM CS T Respiratory Rate 18 06/29/2024 8:53 AM TRAINING INTERN Oxygen Saturation 98% 06/29/2024 8:53 AM TRAINING INTERN Inhaled Oxygen Concentration - - Weight 103.4 kg (228 lb) 06/29/2024 8:53 AM TRAINING INTERN Height 177.8 cm (5' 10 ) 06/29/2024 8:53 AM TRAINING INTERN Body Mass Index 32.71 06/29/2024 8:53 AM TRAINING INTERN Plan of Treatment Upcoming Encounters Date Type Department Care Team (Late st Contact Info) Description 09/28/2024 9:15 AM CDT Lab [facility] [address] [phone] Lab, [facility] 09/28/2024 9:30 AM CDT Office Visit [facility] [address] [phone] Jovani Cordova MD [address] [place] [phone] Health Maintenance Due Date Last Done Comments Hepatitis C Virus (HCV) Screening 1969 TdaP Immunization 1969 Hepatitis B Immunization (1 of 3 - 19+ 3-dose series) 1988 Pneumococcal Immunization (50+ years) (1 of 2 - PCV) 1988 Zoster Immunization (1 of 2) 1988 Colonoscopy 2014 Colorectal Cancer Screening 2014 Cologuard 11/13/2019 Immunochemical Fecal Occult Blood 11/13/2019 Influenza Immunization (#1) 03/11/2024/0 11/2023, 07/01/2021, 05/21/2015 SARS-COV-2 Immunization ( season) 2024 07/15/2023, 07/01/2021, 2020, Additional history exists Respiratory Syncytial Virus (RSV) Immunization (Adult) (1 - 1-dose 75+ series) 2044 Meningococcal Immunization (ACWY) Aged Out No longer eligible based on patient's age to complete this topic Rotavirus Immunization Aged Out No lo nger eligible based on patient's age to complete this topic Procedures Procedure Name Priority Date/Time Associated Diagnosis Comments CT CHEST ABDOMEN AND PELVIS W CONTRAST Routine 06/29/2024 8:51 AM TRAINING INTERN Malignant melanoma, unspecified site (HCC) CBC WITH AUTO DIFF OH Routine 06/29/2024 8:20 AM TRAINING INTERN CMP (COMPREHENSIVE METABOLIC PANEL) Routine 06/29/2024 8:20 AM TRAINING INTERN Malignant melanoma, unspecified site (HCC) LACTATE DEHYDROGENASE (LD) Routine 06/29/2024 8:20 AM TRAINING INTERN Malignant melanoma, unspecified site (HCC) from Last 3 Months Results * CT CHEST ABDOMEN AND PELVIS W CONTRAST (06/29/2024 8:51 AM TRAINING INTERN) Anatomical Region Laterality Modality Chest, Abdomen, Pelvis N/A Computed Tomography Narrative 06/29/2024 10:02 AM TRAINING INTERN EXAMINATION: CT CHEST ABDOMEN AND PELVIS W CONTRAST 06/29/2024 INDICATIONS: Malignant melanoma of skin, unspecified. 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 ??Asymptomatic. ??Restaging and subsequent treatment planning. COMPARISON: CT chest 12/16/2023 as well as exams dating back to 07/22/2022. TECHNIQUE: Postcontrast CT images of the chest, abdomen, and pelvis were obtained following the intravenous administration of 100 CC Omnipaque without evidence of adverse reaction. ??Multiplanar and MIP reconstructions were created. A dose lowering technique was used for this procedure, which may include, but is not limited to, dose reduction technique(s), automated exposure control techniques, use of iterative reconstruction techniques, ??and ALARA (as low as reasonably achievable) or ALARA/IMAGE Gently techniques. FINDINGS: Chest: Cardiovascular: Post sternotomy, CABG, and aortic valvuloplasty changes. ??Normal heart size. ??No significant pericardial effusion. ??Atherosclerotic calcifications of the coronary arteries the thoracic aorta. Pulmonary: Small bilateral pulmonary nodules are not significantly changed. ??No suspicious new or enlarging pulmonary nodules are appreciated. ??No consolidation or pleural effusion. ??The large airways are clear. Lymphatics: No lymphadenopathy is appreciated in the chest. Musculoskeletal: Degenerative changes of the spine. ??No worrisome osseous lesions are appreciated. Abdomen and pelvis: Hepatobiliary: Hepatic steatosis. ??Cholelithiasis without evidence of acute cholecystitis. ??The pancreas is unremarkable. ??No significant biliary ductal dilatation is noted. : The adrenal glands are unremarkable. ??Small right renal cysts again noted. ??No hydronephrosis. ??The urinary bladder is unremarkable. ??Small bilateral hydroceles again noted. GI: The colon is unremarkable. ??The appendix is prominent though appears unchanged without significant periappendiceal inflammatory changes. ??The stomach and small bowel are unremarkable. ??No free intraperitoneal fluid or air is appreciated. Lymphatics: The spleen is unremarkable. ??Borderline enlarged periportal lymph nodes are unchanged. ??A borderline enlarged left inguinal lymph node has minimally increased in size (series 3, image 176). ??Additional prominent to borderline enlarged inguinal lymph nodes appear unchanged. Vascular: Atherosclerotic calcifications with no abdominal aortic aneurysm. Musculoskeletal: Probable tiny bone islands again noted in the proximal femurs and pelvis. ??Degenerative changes of the spine. IMPRESSION 1. Borderline enlarged left inguinal lymph node has minimally increased in size and is nonspecific. ??Soft tissue sampling or PET could be considered. ??At a minimum recommend very close follow-up. 2. Additional prominent to borderline enlarged lymph nodes in the abdomen and pelvis appear unchanged. 3. Small bilateral pulmonary nodules are not significantly changed. Electronically signed by: GODWIN DUMONT MD Date of Signature: ??06/29/2024 10:02:52 Procedure Note Godwin Dumont MD - 06/29/2024 EXAMINATION: CT CHEST ABDOMEN AND PELVIS W CONTRAST 06/29/2024 INDICATIONS: Malignant melanoma of skin, unspecified. Groin melanoma Junetatus post lymph node excision as well as chemotherapy July 2023.Asymptomatic. Restaging and subsequent treatment planning. COMPARISON: CT chest 12/16/2023 as well as exams dating back to 07/22/2022. TECHNIQUE: Postcontrast CT images of the chest, abdomen, and pelvis were obtainedfollowing the intravenous administration of 100 CC Omnipaque withoutevidence of adverse reaction. Multiplanar and MIP reconstructions werecreated. A dose lowering technique was used for this procedure, which may include,but is not limited to, dose reduction technique(s), automated exposurecontrol techniques, use of iterative reconstruction techniques, and ALARA(as low as reasonably achievable) or ALARA/IMAGE Gently techniques. FINDINGS: Chest: Cardiovascular: Post sternotomy, CABG, and aortic valvuloplasty changes.Normal heart size. No significant pericardial effusion. Atheroscleroticcalcifications of the coronary arteries the thoracic aorta. Pulmonary: Small bilateral pulmonary nodules are not significantlychanged. No suspicious new or enlarging pulmonary nodules areappreciated. No consolidation or pleural effusion. The large airways areclear. Lymphatics: No lymphadenopathy is appreciated in the chest. Musculoskeletal: Degenerative changes of the spine. No worrisome osseouslesions are appreciated. Abdomen and pelvis: Hepatobiliary: Hepatic steatosis. Cholelithiasis without evidence ofacute cholecystitis. The pancreas is unremarkable. No significantbiliary ductal dilatation is noted. : The adrenal glands are unremarkable. Small right renal cysts againnoted. No hydronephrosis. The urinary bladder is unremarkable. Smallbilateral hydroceles again noted. GI: The colon is unremarkable. The appendix is prominent though appearsunchanged without significant periappendiceal inflammatory changes. Thestomach and small bowel are unremarkable. No free intraperitoneal fluidor air is appreciated. Lymphatics: The spleen is unremarkable. Borderline enlarged periportallymph nodes are unchanged. A borderline enlarged left inguinal lymph nodehas minimally increased in size (series 3, image 176). Additionalprominent to borderline enlarged inguinal lymph nodes appear unchanged. Vascular: Atherosclerotic calcifications with no abdominal aorticaneurysm. Musculoskeletal: Probable tiny bone islands again noted in the proximalfemurs and pelvis. Degenerative changes of the spine. IMPRESSION 1. Borderline enlarged left inguinal lymph node has minimally increased insize and is nonspecific. Soft tissue sampling or PET could be considered.At a minimum recommend very close follow-up. 2. Additional prominent to borderline enlarged lymph nodes in the abdomenand pelvis appear unchanged. 3. Small bilateral pulmonary nodules are not significantly changed. Electronically signed by: GODWIN DUMONT MD Date of Signature: 06/29/2024 10:02:52 Sima Fried APRN, SWING GRINDER IMG CT ORDERABLES Fin al Result * (ABNORMAL) CBC WITH AUTO DIFF OH (06/29/2024 8:20 AM TRAINING INTERN) WBC 6.8 4.0 - 10.0 10*3/uL [facility] HGB 15.3 13.7 - 17.5 g/dL [facility] HCT 44.0 40.1 - 51.0 % [facility] PLT 252 163 - 369 10*3/uL [facility] MPV 9.3(L) 9.4 - 12.4 fL [facility] RBC 5.30 4.63 - 6.08 10*6/uL [facility] MCV 83 79 - 95 fL [facility] MCH 28.9 25.6 - 32.2 pg [facility] MCHC 34.8 32.2 - 36.5 g/dL [facility] RDW 12.7 11.6 - 14.4 % [facility] Neutrophils % 63.4 36.0 - 66.0 % [facility] Lymphocytes % 24.6 19.0 - 40.0 % [facility] Monocytes % 8.5 4.1 - 12.1 % [facility] Eosinophils % 2.2 0.0 - 3.5 % [facility] Basophils % 0.9 0.0 - 1.0 % [facility] Absolute Neutrophils 4.3 1.4 - 6.6 10*3/uL [facility] Absolute Lymphocytes 1.7 0.8 - 4.0 10*3/uL [facility] Absolute Monocytes 0.6 0.2 - 1.2 10*3/uL [facility] Absolute Eosinophils 0.2 0.0 - 0.4 10*3/uL [facility] Absolute Basophils 0.1 0.0 - 0.1 10*3/uL [facility] 06/29/2024 8:20 AM TRAINING INTERN Sima Fried APRN, SWING GRINDER LAB SEND OUTS Final Result [facility] * LACTATE DEHYDROGENASE (LD) (06/29/2024 8:20 AM TRAINING INTERN) LDH 162 140 - 271 U/L [facility] Blood 06/29/2024 8:20 AM TRAINING INTERN Narrative [facility] - 06/29/2024 9:22 AM TRAINING INTERN Release to patient->Immediate Sima Fried MANUFACTURING ENGINEER PAINT, SWING GRINDER CHEMISTRY ORDERABLES Final Result [facility] [place] [address], * (ABNORMAL) CMP (COMPREHENSIVE METABOLIC PANEL) (06/29/2024 8:20 AM TRAINING INTERN) Glucose 120(H) 70 - 105 mg/dL [facility] Blood Urea Nitrogen 15 7 - 25 mg/dL [facility] Creatinine 1.2 0.7 - 1.3 mg/dL [facility] Sodium 142 136 - 145 mEq/L [facility] Potassium 3.8 3.5 - 5.1 mEq/L [facility] Chloride 100 98 - 107 mEq/L [facility] Bicarbonate 32(H) 21 - 31 mEq/L [facility] Total Bilirubin 0.7 0.3 - 1.0 mg/dL [facility] Alk. Phosphatase 89 34 - 104 U/L [facility] Aspartate Aminotransferase 20 13 - 39 U/L [facility] Alanine Aminotransferase 25 7 - 52 U/L [facility] Total Protein 7.2 6.4 - 8.9 g/dL [facility] Albumin 4.6 3.5 - 5.7 g/dL [facility] Calcium 9.6 8.6 - 10.3 mg/dL [facility] Anion Gap 13.8 7.0 - 15.0 mEq/L [facility] Globulin 2.6 2.0 - 3.5 g/dL [facility]CEMENT [facility] EGFR 72 >60 ml/min/1. 73m2 [facility] Comment: This eGFR is calculated using 2020 CKD-EPI Creatinine equation without race modifier based on the NKF-ASN task force recommendations Blood 06/29/2024 8:20 AM TRAINING INTERN Narrative [facility] - 06/29/2024 9:22 AM TRAINING INTERN Release to patient->Immediate IS THE PATIENT REQUIRED TO BE FASTING FOR 8 HOURS?->No us Sima Fried APRN, SWING GRINDER CHEMISTRY ORDERABLES Final Result [facility] [address] [place] [address], [place] [phone] from Last 3 Months Insurance [facility] Care Teams Battery Vent Plug Inserter Relationship Specialty Start Date End Date Erlin Armenta DO [address] [place] [address] PCP - General Internal Medicine 07/16/22 Jovani Cordova MD [address] [place] [phone] Consulting Physician Oncology 08/06/22
--- OUTSIDE RECORDS SUMMARY | 2024-08-08 03:23 | XMS_ITS | Encounter Summary ---
Author Organization [facility] Address [address] [place] [address] Care Team Providers Care Embedded Engineer Name Role Phone Erlin Armenta DO Primary Care Provider [phone] Kirti Duran RN Unavailable Unavailab le Encounter Details Date Type Department Care Team (Late Contact Info) Description 12/21/2022 Telephone [facility] - Centralized Scheduling [address] [place] [address] Otilio Ndiaye MD [address] [facility] [address] [place] [address] Social History Tobacco Use Types Packs/Day Years Used Date Smoking Tobacco: Never Smokeless Tobacco: Never Alcohol Use Standard Drinks/Week Comments Yes 0 (1 standard drink = 0.6 oz pur e alcohol) social Sex and Gender Information Value Date Recorded Sex Assigned at Not on file Gender Identity Not on file Sexual Orientation Not on file documented as of this encounter Plan of Treatment Upcoming Encounters Date Type Department Care Team (Late Contact Info) Description 12/24/2024 1:15 PM CDT Office Visit [facility] - General Surgery [address] [place] [address] Otilio Ndiaye MD [address] [facility] [address] [place] [address] documented as of this encounter Visit Diagnoses Not on filedocumented in this encounter Care Teams Embedded Engineer Relationship Specialty Start Date End Date Erlin Amrenta DO [address] [facility] [address] [place] [address] PCP - General 06/25/22 Kirti Duran, cream dumperCollar Tacker 12/16/23 12/16/23 documented as of this encounter
--- OUTSIDE RECORDS SUMMARY | 2024-08-08 03:23 | XMS_ITS ---
Author Organization [facility] Address [address], [facility] [address] [place] [address] Phone Care Team Providers Care Shelter Director Name Role Phone Erlin Armenta DO Primary Care Provider Jovani Cordova MD Unavailable [phone] Active Problems Problem Noted Date Diagnosed Date Elevated blood pressure reading 06/29/2024 Melanoma 07/28/2022 S/P AVR (aortic valve replacement) 07/12/2017 Hx of CABG 07/12/2017 Atherosclerosis of coronary artery 01/30/2014 Aortic valve stenosis 01/30/2014 Current Treatment and Therapy Plans [facility]: Nivolumab (Every 2 weeks) - Melanoma* Plan Start Date:08/05/2022 Plan Provider:Jovani Cordova MD Linked Problems Malignant melanoma, unspecif ied site (HCC) Treatment Medications nivolumab (OPDIVO) IVPB Past Treatment and Therapy Plans No past plan information found.
--- OUTSIDE RECORDS SUMMARY | 2024-08-08 03:23 | XMS_ITS | Encounter Summary ---
Author Organization [facility] Address [address] [place] [address] Care Team Providers Care Burrer Operator Name Role Phone Erlin Armenta DO Primary Care Provider [phone] Kirti Duran RN Unavailable Unavailab le Encounter Details Date Type Department Care Team (Late Contact Info) Description 12/20/2022 Telephone [facility] - Centralized Scheduling [address] [place] [phone] Otilio Ndiaye MD [address] [facility] [address] [place] [address] Social History Tobacco Use Types [...] [facility] - General Surgery [address] [place] [address] Otilio Ndiaye MD [address] [facility] [address] [place] [address] documented as of this encounter Visit Diagnoses Not on filedocumented in this encounter Care Teams Burrer Operator Relationship Specialty Start Date End Date Erlin Armenta DO [address] [facility] [address] [place] [address] PCP - General 06/25/22 Kirti Duran, quality assurance testerRetail Assistant Manager 12/16/23 12/16/23 documented as of this encounter
--- OUTSIDE RECORDS SUMMARY | 2024-08-08 03:23 | XMS_ITS | Referral Summary ---
Author Organization [facility] Address [address] [place] [address] Care Team Providers Care Experiential Therapist Name Role Phone Geovany Erlin Silverio DO Primary Care Provider [phone] Source Comments [facility],non-owned Affiliates and Associated Physician Practices is amultiple site organization consisting of ambulatory clinics and hospital sitesin [place], [place], [place] and [place]. This disclosure is being madepursuant to the Care Everywhere program and may not contain all information available regarding this patient. Last updated 18.[facility] Encounters Date Type Department Care Team Description 07/02/2024 Travel 07/02/2024 1:15 PM CARD SCRAPER Office Visit [facility] - General Surgery [address] [place] [phone] Otilio Ndiaye MD Lymphadenopathy, inguinal (Primary Dx); Melanoma of suprapubic region (HCC) from Last 3 Months Allergies No known active allergies Medications * Be aware that medications may not be up to date on this document. Alwaysverify current medications with the patient. Medication Sig Dispensed Refills Start Date End Date Status metFORMIN (Glucophage) 500 MG tablet Take 1 (one) tablet by mouth 2 times daily with morning and evening meal 03/25/2021 Active hydroCHLOROthiazide (Hydrodiuril) 25 MG tablet 04/21/2021 Active pantoprazole EC (Protonix) 40 MG tablet Take 1 (one) tablet by mouth once daily Active valsartan (Diovan) 320 MG tablet Take 1 (one) tablet by mouth once daily 04/21/2022 Active Jardiance 25 MG tablet Take 1 (one) tablet by mouth once daily 11/30/2023 Active famotidine (Pepcid) 20 MG tablet Take 1 (one) tablet by mouth once daily 11/14/2023 Active apixaban (Eliquis) 5 MG tablet Take 1 (one) tablet by mouth 2 times daily 60 tablet 12/15/2023 Active metoprolol succinate XL 24hr (Toprol XL) 50 MG tablet Take 1 (one) tablet by mouth once daily 30 tablet 12/15/2023 Active Mounjaro 5 MG/0.5ML injection 06/01/2024 Active rosuvastatin (Crestor) 40 MG tablet Take 1 (one) tablet by mouth once daily 05/25/2024 Active Active Problems Problem Noted Date Diagnosed Date NSTEMI (non-ST elevated myocardial infarction) 0 12/14/2023 Chest pain, unspecified type 12/14/2023 Pre-op testing 06/28/2022 Melanoma of suprapubic region 06/28/2022 Cancer Staging:Clinical:Stage IB(cT2a, cN0, cM0) - Unsigned Pathologic stage from 08/06/2022:Stage IIIB(pT3a, pN1a, cM0) - Signed by Otilio Ndiaye MD on 08/06/2022 Immunizations Name Administration Dates Next Due INFLUENZA VACCINE, CELL CULT URE, QUADR. (FLUCELVAX QUADRIVALENT; 6MO+) (CCIIV4) 07/15/2023 Social History Tobacco Use Types Packs/Day Years [...] care, and heating? Not very hard 12/14/2023 [facility] - Occupational Stress [...] place to sleep or slept in a assisted (including now)? No 12/14/2023 Sex and Gender Information Value Date Recorded Sex Assigned at Not on file Gender Identity Not on file Sexual Orientation Not on file Last Filed Vital Signs Vital Sign Reading Time Taken Comments Blood Pressure 181/94 07/02/2024 1:05 PM CARD SCRAPER Pulse 67 07/02/2024 1:05 PM CARD SCRAPER Temperature 36.1 ??C (97 ??F) 07/02/2024 1:05 PM CARD SCRAPER Respiratory Rate 20 12/15/2023 1:18 PM CDT Oxygen Saturation 98% 07/02/2024 1:05 PM CARD SCRAPER Inhaled Oxygen Concentration - - Weight 103.9 kg (229 lb) 07/02/2024 1:05 PM CARD SCRAPER Height 177.8 cm (5' 10 ) 07/02/2024 1:05 PM CARD SCRAPER Body Mass Index 32.86 07/02/2024 1:05 PM CARD SCRAPER Functional Status Functional Status Response Date of Assess ment Is person deaf or have serious hearing difficult y? No 12/14/2023 Is person blind or have serious difficulty seein g? No 12/14/2023 Does person have serious dif ficulty walking/climbing stairs? No 12/14/2023 Does person have difficulty dressing/bathing? No 12/14/2023 Does person have difficulty doing errands alone? No 12/14/2023 Cognitive Status Response Date of Assessm ent Does person have difficulty concentrating/remembering/making decisions? No 12/14/2023 Plan of Treatment Upcoming Encounters Date Type Department Care Team (Late st Contact Info) Description 12/24/2024 1:15 PM CDT Office Visit [facility] - General Surgery [address] [place] [address] Otilio Ndiaye MD [address] [id number] Procedures Procedure Name Priority Date/Time Associated Diagnosis Comments BASIC METABOLIC PANEL (CALCIUM TOTAL) Routine 12/15/2023 4:15 AM CDT from Last 3 Months or Most Recently Relevant to Health Maintenance Results * (ABNORMAL) BASIC METABOLIC PANEL (CALCIUM TOTAL) (12/15/2023 4:15 AM CDT) Glucose 158(H) 70 - 105 mg/dL 12/15/2023 5:05 AM CDT [facility] Sodium 140 136 - 145 mmol/L 12/15/2023 5:05 AM CDT [facility] Potassium 3.1(L) 3.5 - 5.1 mmol/L 12/15/2023 5:05 AM CDT [facility] Chloride 105 98 - 107 mmol/L 12/15/2023 5:05 AM CDT [facility] CO2 25 22 - 29 mmol/L 12/15/2023 5:05 AM CDT [facility] Calcium 9.2 8.4 - 10.4 mg/dL 12/15/2023 5:05 AM CDT [facility] Anion Gap 10 6 - 16 mmol/L 12/15/2023 5:05 AM CDT [facility] BUN 18 7 - 26 mg/dL 12/15/2023 5:05 AM CDT [facility] Creatinine 1.17 0.72 - 1.25 mg/dL 12/15/2023 5:05 AM CDT [facility] eGFR by CKD-EPI 74(L) >=90 mL/min/1.7 3 m2 12/15/2023 5:05 AM CDT [facility] Blood BLOOD SPECIMEN / Unknown Lab Venipuncture / Unknown 12/15/2023 4:15 AM CDT 12/15/2023 4:30 AM CDT Tessie Rodriges IRRIGATION INSTALLATION SPECIALIST-PRESIDENT ERGONOMIC CONSULTING LAB - CHEMIS TRY ORDERABLES [facility] [address] [place] [address] from Last 3 Months or Most Recently Relevant to Health Maintenance Advance Directives * Full Code (Latest Code Status on File) Date Activated Date Inactivated Comments 12/14/2023 12:13 PM 12/15/2023 5:05 PM Care Teams Experiential Therapist Relationship Specialty Start Date End Date Erlin Armenta DO [address] [facility] [address] [place], [place] [id number] PCP - General 06/25/22
--- OUTSIDE RECORDS SUMMARY | 2024-08-08 03:23 | XMS_ITS | Clinical Summary ---
Author Organization [facility] Address [address] [place] [address] Care Team Providers Care Pencil Inspector Name Role Phone Erlin Armenta DO Primary Care Provider [phone] Source Comments [facility],non-owned Affiliates and Associated Physician Practices is amultiple site organization consisting of ambulatory clinics and hospital sitesin [place], [place], [place] and [place]. This disclosure is being madepursuant to the Care Everywhere program and may not contain all information available regarding this patient. Last updated 18.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 (FLUCELVAX QUADRIVALENT; 6MO+) (CCIIV4) 07/15/2023 Family History Medical History Relation Name Comments High Cholesterol Father High Cholesterol Mother Relation Name Status Comments Father Mother Social History Tobacco Use Types Packs/Day Years [...] care, and heating? Not very hard 12/14/2023 [facility] - Occupational Stress [...] place to sleep or slept in a nursing home (including now)? No 12/14/2023 Sex and Gender Information Value Date Recorded Sex Assigned at Not on file Gender Identity Not on file Sexual Orientation Not on file Last Filed Vital Signs Vital Sign Reading Time Taken Comments Blood Pressure 181/94 07/02/2024 1:05 PM REFRIGERATED NATIONAL TRUCK DRIVER Pulse 67 07/02/2024 1:05 PM REFRIGERATED NATIONAL TRUCK DRIVER Temperature 36.1 ??C (97 ??F) 07/02/2024 1:05 PM REFRIGERATED NATIONAL TRUCK DRIVER Respiratory Rate 20 12/15/2023 1:18 PM CDT Oxygen Saturation 98% 07/02/2024 1:05 PM REFRIGERATED NATIONAL TRUCK DRIVER Inhaled Oxygen Concentration - - Weight 103.9 kg (229 lb) 07/02/2024 1:05 PM REFRIGERATED NATIONAL TRUCK DRIVER Height 177.8 cm (5' 10 ) 07/02/2024 1:05 PM REFRIGERATED NATIONAL TRUCK DRIVER Body Mass Index 32.86 07/02/2024 1:05 PM REFRIGERATED NATIONAL TRUCK DRIVER Plan of Treatment Upcoming Encounters Date Type Department Care Team (Late st Contact Info) Description 12/24/2024 1:15 PM CDT Office Visit [facility] - General Surgery [address] [place] [address] Otilio Ndiaye MD [address] [facility] [address] [place] [address] Health Maintenance Due Date Last Done Comments COLOGUARD (AGES 45-75) - COLON CA SCREENING 1969 COLON MONITORING 1969 COLONOSCOPY - COLON CA SCREENING 1969 CT COLONOGRAPHY - COLON CA SCREENING 1969 Colorectal Cancer Screening 1969 FIT - COLON CA SCREENING 1969 FLEX SIG - COLON CA SCREENING 1969 HIV SCREENING 1984 HEPATITIS C SCREENING 11/08/1987 DTAP/TDAP/TD VACCINES (1 - Tdap) 1988 HEPATITIS B VACCINE (1 of 3 - 19+ 3-dose series) 1988 PNEUMOCOCCAL VACCINE 50+ (1 of 2 - PCV) 1988 ZOSTER VACCINE (1 of 2) 1988 COVID-19 VACCINE ( - season) 2024 07/15/2023, 07/01/2021, 2020, Additional history exists INFLUENZA VACCINE (#1) 2024 07/15/2023 DEPRESSION SCREENING 07/11/2024 SCREENING FOR DIABETES 12/14/2026 , 12/14/2023, 12/14/2023, Additional history exists HIB VACCINE Aged Out No longer eligi ble based on patient's age to complete this topic HPV VACCINE Aged Out No longer eligi ble based on patient's age to complete this topic MENINGOCOCCAL (Group B) VACCINE Aged Out No longer eligible based on patient's age to complete this topic MENINGOCOCCAL VACCINE Aged Out No taran tomás eligible based on patient's age to complete this topic Procedures Procedure Name Priority Date/Time Associated Diagnosis Comments BASIC METABOLIC PANEL (CALCIUM TOTAL) Routine 12/15/2023 4:15 AM CDT from Last 3 Months or Most Recently Relevant to Health Maintenance Results * (ABNORMAL) BASIC METABOLIC PANEL (CALCIUM TOTAL) (12/15/2023 4:15 AM CDT) [facility] Glucose 158(H) 70 - 105 mg/dL 12/15/2023 5:05 AM CDT [facility] Sodium 140 136 - 145 mmol/L 12/15/2023 5:05 AM CDT [facility] Potassium 3.1(L) 3.5 - 5.1 mmol/L 12/15/2023 5:05 AM CDT [facility] Chloride 105 98 - 107 mmol/L 12/15/2023 5:05 AM CDT [facility] CO2 25 22 - 29 mmol/L 12/15/2023 5:05 AM CDT [facility] Calcium 9.2 8.4 - 10.4 mg/dL 12/15/2023 5:05 AM T [facility] Anion Gap 10 6 - 16 mmol/L 12/15/2023 5:05 AM CDT [facility] BUN 18 7 - 26 mg/dL 12/15/2023 5:05 AM CDT [facility] Creatinine 1.17 0.72 - 1.25 mg/dL 12/15/2023 5:05 AM T [facility] eGFR by CKD-EPI 74(L) >=90 mL/min/1.7 3 m2 12/15/2023 5:05 AM T [facility] Blood BLOOD SPECIMEN / Unknown Lab Venipuncture / Unknown 12/15/2023 4:15 AM CDT 12/15/2023 4:30 AM CDT Tessie Rodriges STUDIO SET UP WORKER-BULB ASSEMBLER LAB - CHEMIS TRY ORDERABLES [facility] [address] [place] [address] from Last 3 Months or Most Recently Relevant to Health Maintenance Advance Directives * Full Code (Latest Code Status on File) Date Activated Date Inactivated Comments 12/14/2023 12:13 PM 12/15/2023 5:05 PM Care Teams Pencil Inspector Relationship Specialty Start Date End Date Erlin Armenta DO [address] [facility] [address] [place] [address] PCP - General 06/25/22
--- OUTSIDE RECORDS SUMMARY | 2024-08-08 03:23 | XMS_ITS | Encounter Summary ---
Author Organization [facility] Address [address] [place] [address] Phone Care Team Providers Care Senior Director Name Role Phone Erlin Armenta DO Primary Care Provider [phone] Jovani Cordova MD Unavailable [phone] Reason for Visit * Reason Onset Date Comments Prior Authorization 12/08/2023 Ct a/p román l info Encounter Details Date Type Department Care Team (Late st Contact Info) Description 12/08/2023 Telephone [facility] [address] [place] [address] Jovani Cordova MD [address] [place] [address] Prior Authorization (Ct a/p denial info) Social History Tobacco Use Types Packs/Day Years Used Date Smoking Tobacco: Never Smokeless Tobacco: Never Alcohol Use Standard Drinks/Week Comments Yes 12 (1 standard drink = 0.6 oz pu re alcohol) only during summer months Sex and Gender Information Value Date Recorded Sex Assigned at Not on file Legal Sex 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 Patient confirmed. * Telephone Encounter - Susan Gilliland - 12/09/2023 9:59 AM CDT Order changed to Chest W Will attempt to call patient to r/s. * Telephone Encounter - Angeline Thornton RN - 12/08/2023 12:11 PM CDT Just clarifying that you are okay with scheduling CT chest since that is all that is approved. * Telephone Encounter - Angeline Thornton RN - 12/08/2023 12:11 PM CDT Images from the original note were not included. Jovani Cordova MD Whittington, Melissa J.; Cc [facility]; Cc Of Imaging2 hoursago (9:52 AM) MW Ok to cont with Only supported at one of the following times. - Once per six months for two years. - Then once a year for three years. * Telephone Encounter - Iram Tobar - 12/08/2023 8:47 AM CDT Received insurance denial on ct a/p stating it doesn't meet medical necessity w/patient ins policy.There is an option for peer to peer. Ct chest was approved. How do you want to proceed? Peer to peer info: [phone] option 2 Ref# [id number] Ct a/p denial reasoning: Only supported at one of the following times. - Once per six months for two years. - Then once a year for three years. documented in this encounter Plan of Treatment Upcoming Encounters Date Type Department Care Team (Late st Contact Info) Description 09/28/2024 9:15 AM CDT Lab [facility] [address] [phone] Lab, Cc [facility] 09/28/2024 9:30 AM CDT Office Visit [facility] [address] [phone] Jovani Cordova MD [address] [place] [phone] documented as of this encounter Visit Diagnoses Not on filedocumented in this encounter Care Teams Senior Director Relationship Specialty Start Date End Date Erlin Armenta DO [address] [place], [place] [phone] PCP - General Internal Medicine 07/16/22 Jovani Cordova MD [address] [place] [phone] Consulting Physician Oncology 08/06/22 documented as of this encounter
--- OUTSIDE RECORDS SUMMARY | 2024-08-08 03:24 | XMS_ITS | Clinical Summary ---
Author Organization [facility] Address [address] [place] [address]. [place], [place] [id number] [place] [address] Care Team Providers Care Cigar Inspector Name Role Phone Erlin Armenta MD Primary Care Provider [phone] Allergies No known active allergies Medications traMADol (ULTRAM) 50 MG tabletIndicatio ns:Acute Pain < 7 Day Supply Indications: Acute Pain < 7 Day Supply 1-2 tabs po q6 hours prn pain 16 tablet 11/21/2022 Active apixaban (ELIQUIS) 5 MG tablet Take 1 tablet (5 mg total) by mouth 2 (two) times daily. 12/15/2023 Active empagliflozin (JARDIANCE) 25 MG tablet Take 1 tablet (25 mg total) by mouth daily. 11/30/2023 Active famotidine (PEPCID) 20 MG tablet Take 1 tablet (20 mg total) by mouth daily. 11/14/2023 Active hydroCHLOROthia zide (HYDRODIURIL) 25 MG tablet Take 1 tablet (25 mg total) by mouth daily. 11/14/2023 Active LORazepam (ATIVAN) 1 MG tablet Take 1 tablet by mouth [address] scan. 07/15/2023 Active metoprolol succinate ER (TOPROL-XL) 50 MG 24 hr tablet Take 1 tablet (50 mg total) by mouth daily. 12/15/2023 Active pantoprazole EC (PROTONIX) 40 MG tablet Take 1 tablet (40 mg total) by mouth. Active rosuvastatin (CRESTOR) 20 MG tablet Take 1 tablet (20 mg total) by mouth daily. 01/08/2023 Active Social History Tobacco Use Types Packs/Day Years Used Date Smoking Tobacco: Never Smokeless Tobacco: Never Tobacco Cessation:Counseling Given: Not Answered Alcohol Use Standard Drinks/Week Comments Yes 0 (1 standard drink = 0.6 oz pur e alcohol) occ Sex and Gender Information Value Date Recorded Sex Assigned at Not on file Legal Sex Male 10:29 AM CDT Gender Identity Not on file Sexual Orientation Not on file Last Filed Vital Signs Vital Sign Reading Time Taken Comments Blood Pressure 143/81 12/25/2023 3:00 PM CDT Pulse 67 12/25/2023 3:00 PM CDT Temperature 36.8 ??C (98.2 ??F) 12/25/2023 2:11 PM CD T Respiratory Rate 16 12/25/2023 3:00 PM CDT Oxygen Saturation 100% 12/25/2023 3:00 PM CDT Inhaled Oxygen Concentration - - Weight 98.3 kg (216 lb 11.4 oz) 12/25/2023 2:11 PM CDT Height 177.8 cm (5' 10 ) 12/25/2023 2:11 PM CDT Body Mass Index 31.09 12/25/2023 2:11 PM CDT Plan of Treatment Health Maintenance Due Date Last Done Comments Colorectal Cancer Screening Colonoscopy (10 Years) 1969 Annual Physical 1972 PHQ-2 (Physician [place]) 1981 Hepatitis C 11/13/1987 DTaP, Tdap and Td Vaccines (1 - Tdap) 1988 Hepatitis B Vaccines (1 of 3 - 19+ 3-dose series) 1988 Zoster Vaccines (1 of 2) 11/13/2019 COVID-19 Vaccine ( season) 2024 07/15/2023, 07/01/2021, 2020, Additional history exists Influenza Adult (#1) 2024 07/15/2023, 07/01/2021, 05/21/2015 PHQ-2 (Physician [place]) 07/11/2024 Meningococcal B Vaccine Aged Out No l onger eligible based on patient's age to complete this topic Meningococcal Vaccine Aged Out No taran tomás eligible based on patient's age to complete this topic Pneumococcal Vaccine: Pediatrics (0 to 5 Years) and At-Risk Patients (6 to 64 Years) Aged Out No longer eligible based on patient's age to complete this topic RSV Immunizations Under 20 Months Aged Out No longer eligible based on patient's age to complete this topic Insurance Care Teams Cigar Inspector Relationship Specialty Start Date End Date Erlin Armenta MD [address] [place] [address] [place], [place] [id number] PCP - General INTERNAL MEDICINE 11/21/22
[2024-08-08 11:39] VITALS: BMI 32.0
[2024-08-08 11:44] VITALS: BP 155/78; PULSE 76; RESP 20; TEMP 36; O2SAT 99
[2024-08-08] MEDS: LACTATED RINGERS 1,000 ML 150 ML IV CONT (12:01)
[2024-08-08 12:02] LABS: Glucose Point of Care 127 mg/dl (65-105)
--- NOTE | 2024-08-08 12:11 | PM.IMHP ---
H&P: [facility] History of Present Illness Date/Time: 08/08/24 12:11 Chief Complaint: Chronic diarrhea Narrative: this patient has been experiencing loose stools, [place] type 6-7 for the past 12 months, with no blood, urgency, tenesmus or weight loss. His stool calprotectin level is 317 2 months ago. He is here for colonoscopy to rule out IBD versus microscopic colitis. The patient is a diabetic. Review of Systems Review of Systems: All systems reviewed & are unremarkable except as noted in HPI and below [facility] Past Medical History Medical History Abnormal heartbeat Afib Allergic rhinitis, unspecified Atherosclerotic heart disease of [place] coronary artery without angina pectoris Encounter for screening for malignant neoplasm of prostate Essential (primary) hypertension Gastro-esophageal reflux disease without esophagitis High cholesterol HTN (hypertension) Hyperlipidemia Lateral epicondylitis of left elbow Left elbow pain Melena Obesity (BMI 30-39.9) Other fatigue Pure hypercholesterolemia Right Achilles tendinitis Seen by upper gastrointestinal surgery service 2023 SOB (shortness of breath) Type 2 diabetes mellitus Vision abnormalities Surgical History Surgical History History of cardiac cath 2023 History of heart bypass surgery 2009 Dr. Akhtar History of melanoma excision 2021- Dr. Garcia Family History Family History Sibling Patient's sister is in good health Mother Cerebrovascular accident Skin cancer Father Skin cancer Diabetes mellitus Social History Social History Smoking status: Never smoker Second hand tobacco smoke exposure: Yes Alcohol intake: current Drinks per week: 12 Alcohol use details: rarely Substance use: never Substance use type: does not use Do You Feel Safe in your Home?: Yes Lack of Transportation: No Lack of Food: Never True Current Housing: I Have Housing Concerned About Future Housing: No Difficulty Paying Gas/Electric Bills: No Difficulty Paying for Meds: No Currently Unemployed: No Education: Bachelor's Degree Difficulty w/ Childcare or Family Care: No Living arrangements: alone Occupation/Education: occupation 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[employer] Gender identity (if verbalized by the patient): Male Spiritual care concerns: No Meds Home Medications and Allergies Home Medications ?Medication ?Instructions ?Recorded ?Confirmed ?Type pantoprazole 40 mg tablet,delayed 40 mg PO QAM #90 tabs 09/30/23 08/08/24 Rx release (Protonix) hydrochlorothiazide 25 mg tablet 25 mg PO DAILY #90 tabs 11/13/23 08/08/24 Rx empagliflozin 25 mg tablet 25 mg PO DAILY #90 tabs 11/30/23 08/08/24 Rx (Jardiance) apixaban 5 mg tablet (Eliquis) 5 mg PO BID #60 tabs 01/18/24 08/08/24 Rx famotidine 20 mg tablet 20 mg PO DAILY #90 tabs 02/10/24 08/08/24 Rx valsartan 320 mg tablet 320 mg PO DAILY #90 tabs 02/10/24 08/08/24 Rx aspirin 81 mg tablet,delayed 81 mg PO DAILY 05/16/24 08/08/24 History release (Adult Low Dose Aspirin) rosuvastatin 40 mg tablet 40 mg PO DAILY #90 tabs 05/16/24 08/08/24 Rx dicyclomine 10 mg capsule 10 mg PO TID #90 caps 05/17/24 07/31/24 Rx metoprolol succinate 50 mg 50 mg PO DAILY #90 tabs 06/11/24 08/08/24 Rx tablet,extended release 24 hr tirzepatide 5 mg/0.5 mL 5 mg (0.5 mL) subcut WEEKLY #2 mL 06/11/24 08/08/24 Rx subcutaneous pen injector (Tony) Allergies Allergy/AdvReac Type Severity Reaction Status Date / Time No Known Drug Allergies Allergy Mild Other Verified 07/31/24 09:21 Vital Signs Vital Signs - 24 hr 08/08/24 11:44 Temperature 96.8 F L Pulse Rate 76 Respiratory Rate 20 Blood Pressure 155/78 H Pulse Oximetry 99 Oxygen Delivery Room Air Exam Const: General: cooperative and healthy appearing Resp: Effort & Inspection: normal respiratory effort and able to speak in complete sentences Auscultation: clear to auscultation bilaterally Cardio: Rate: regular rate Rhythm: regular rhythm GI: Inspection: normal to inspection GI Palp: No No hepatosplenomegaly present Auscultation: normal bowel sounds Rectal Exam: deferred Skin: General skin exam: normal color Psych: Appearance: grossly normal Mental Status: mental status grossly normal Assessment and Plan Assessment and plan (1) Diarrhea: Qualifiers: Diarrhea type: unspecified type Qualified Code(s): R19.7 - Diarrhea, unspecified Code(s): R19.7 - Diarrhea, unspecified Status: Acute Plan The patient is deemed a good candidate for the procedure. Consent signed. Will proceed.
--- NOTE | 2024-08-08 13:10 | WPDANESEPPF ---
Anes - Initial Pre Proc Eval Procedure: Operation Date: 08/08/24 13:00 Proposed Procedures p Colonoscopy - Jacob Sales MD Date/Time: 08/08/24 13:10 Surgeon: Jacob Sales MD Pre Op Diagnosis: Fecal urgency,Diarrhea Patient Data Age: 53 Gender: M Height: 1.78 m Weight: 101.2 kg Last Vital Signs Temp 36.0 C L 08/08/24 11:44 Pulse 76 08/08/24 11:44 Resp 20 08/08/24 11:44 BP 155/78 H 08/08/24 11:44 Pulse Ox 99 08/08/24 11:44 O2 Del Method Room Air 08/08/24 11:44 Allergies Allergy/AdvReac Type Severity Reaction Status Date / Time No Known Drug Allergies Allergy Mild Other Verified 07/31/24 09:21 Home Medications ?Medication ?Instructions ?Recorded ?Confirmed ?Type pantoprazole 40 mg tablet,delayed 40 mg PO QAM #90 tabs 09/30/23 08/08/24 Rx release (Protonix) hydrochlorothiazide 25 mg tablet 25 mg PO DAILY #90 tabs 11/13/23 08/08/24 Rx empagliflozin 25 mg tablet 25 mg PO DAILY #90 tabs 11/30/23 08/08/24 Rx (Jardiance) apixaban 5 mg tablet (Eliquis) 5 mg PO BID #60 tabs 01/18/24 08/08/24 Rx famotidine 20 mg tablet 20 mg PO DAILY #90 tabs 02/10/24 08/08/24 Rx valsartan 320 mg tablet 320 mg PO DAILY #90 tabs 02/10/24 08/08/24 Rx aspirin 81 mg tablet,delayed 81 mg PO DAILY 05/16/24 08/08/24 History release (Adult Low Dose Aspirin) rosuvastatin 40 mg tablet 40 mg PO DAILY #90 tabs 05/16/24 08/08/24 Rx dicyclomine 10 mg capsule 10 mg PO TID #90 caps 05/17/24 07/31/24 Rx metoprolol succinate 50 mg 50 mg PO DAILY #90 tabs 06/11/24 08/08/24 Rx tablet,extended release 24 hr tirzepatide 5 mg/0.5 mL 5 mg (0.5 mL) subcut WEEKLY #2 mL 06/11/24 08/08/24 Rx subcutaneous pen injector (Mounjaro) Laboratory Tests 08/08/24 11:58 POC Capillary Glucose 127 H mg/dl (65-105) Patient hx anesthesia problems: none Family hx anesthesia problems: none Results Review: All pre-operative results and documents have been reviewed as part of the pre-operative evaluation. [facility] Past Medical History Medical History Right Achilles tendinitis Other fatigue Gastro-esophageal reflux disease without esophagitis Encounter for screening for malignant neoplasm of prostate Allergic rhinitis, unspecified Seen by upper gastrointestinal surgery service 2023 Abnormal heartbeat High cholesterol HTN (hypertension) Afib SOB (shortness of breath) Vision abnormalities Lateral epicondylitis of left elbow Left elbow pain Melena Type 2 diabetes mellitus Obesity (BMI 30-39.9) Hyperlipidemia Essential (primary) hypertension Atherosclerotic heart disease of [place] coronary artery without angina pectoris Pure hypercholesterolemia Surgical History Surgical History History of melanoma excision 2021- Dr. Garcia History of cardiac cath 2023 History of heart bypass surgery 2009 Dr. Akhtar Family History Family History Sibling Patient's sister is in good health Mother Cerebrovascular accident Skin cancer Father Skin cancer Diabetes mellitus Social History Social History Smoking status: Never smoker Second hand tobacco smoke exposure: Yes Alcohol intake: current Drinks per week: 12 Alcohol use details: rarely Substance use: never Substance use type: does not use Do You Feel Safe in your Home?: Yes Lack of Transportation: No Lack of Food: Never True Current Housing: I Have Housing Concerned About Future Housing: No Difficulty Paying Gas/Electric Bills: No Difficulty Paying for Meds: No Currently Unemployed: No Education: Bachelor's Degree Difficulty w/ Childcare or Family Care: No Living arrangements: alone Occupation/Education: occupation 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 Informed Consent: The patient's anesthetic plan and its attendant risks and benefits were discussed with the patient/family/POA. Questions were solicited and answers provided to the satisfaction of the patient/family/POA.
[2024-08-08 13:41] VITALS: BP 114/60; PULSE 60; RESP 22; O2SAT 98
[2024-08-08 13:51] VITALS: BP 103/61; PULSE 60; RESP 20; O2SAT 99
[2024-08-08 14:01] VITALS: BP 120/73; PULSE 62; RESP 18; O2SAT 100
--- NOTE | 2024-08-08 14:19 | SUR.PHASEII ---
Dr. Sales said patient can resume Eliquis today. Patient verbalized understanding.
== END 2024-08-08 14:18 | disposition home or self-care (01) ==
PROVIDERS: PCP Internal Medicine; Referring Provider Nurse Practitioner Family; Visit Provider Internal Medicine Gastroenterology
PROC: 0DJD8ZZ Inspection of Lower Intestinal Tract, Via Natural or Artificial Opening Endoscopic (ICD-10-PCS; CPT 45378; principal; 2024-08-08 13:00)
DX: Z12.11 Encounter for screening for malignant neoplasm of colon (principal); D12.4 Benign neoplasm of descending colon; K63.89 Other specified diseases of intestine; E11.9 Type 2 diabetes mellitus without complications; I48.91 Unspecified atrial fibrillation; I25.10 Atherosclerotic heart disease of native coronary artery without angina pectoris; I10 Essential (primary) hypertension; K21.9 Gastro-esophageal reflux disease without esophagitis; E78.00 Pure hypercholesterolemia, unspecified; E66.9 Obesity, unspecified; Z68.32 Body mass index [BMI] 32.0-32.9, adult; Z79.84 Long term (current) use of oral hypoglycemic drugs; Z79.01 Long term (current) use of anticoagulants; Z79.82 Long term (current) use of aspirin; Z79.85 Long-term (current) use of injectable non-insulin antidiabetic drugs; Z98.890 Other specified postprocedural states; Z95.1 Presence of aortocoronary bypass graft; Z98.61 Coronary angioplasty status; Z84.0 Family history of diseases of the skin and subcutaneous tissue; Z82.49 Family history of ischemic heart disease and other diseases of the circulatory system
CPT/HCPCS: 45385; 45380; 82948; 88305; J2003; J2704; J7120